=== PATIENT | male | born 1985 | race Caucasian/White ===

== ENCOUNTER 2019-03-01 09:10 | Inpatient (IN) ==
--- NOTE | 2019-03-01 09:37 | Emergency Department Note ---
Nausea/Vomiting/Diarrhea HPI - General Chief complaint: Nausea/Vomiting/Diarrhea Stated complaint: Vomiting, abd pain Time Seen by Provider: 03/01/19 09:25 Source: patient Mode of arrival: ambulatory Limitations: no limitations - History of Present Illness HPI Narrative: Patient has a history of insulin-dependent diabetes since age 10. 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 Has been on insulin ever since then. Only takes Lantus 25 units in the morning, also was high last night, bolused himself regular insulin several times. The last time he took insulin was 15 units of regular at 7:00 this morning. His blood sugar did come down to 300s to now 191. He does have mid epigastric abdominal pain and diffuse pain in the upper part of the abdomen. His symptoms started yesterday morning with an episode of vomiting after he had some coffee in the morning. He does remember taking his a.m. Lantus yesterday morning. Then he slept most of day yesterday, yesterday evening ate some chicken noodle soup and then promptly vomited up his dinner a little bit later. He is passing gas but very infrequently. Last bowel movement was 2 days ago. Feels nauseated at this point. Has been dry heaving much all evening and throughout the night. He get his sugar under control, he feels dehydrated. Denies chest pain denies shortness of breath no headache no sore throat, mouth feels dry. Denies any respiratory difficulty. He is still putting out urine, lasttime he voided was less than a few hours ago. MD complaint: nausea, vomiting, abdominal pain - Related Data Home Medications Medication Instructions Recorded Confirmed Cinacalcet HCl [Sensipar] 60 mg PO DAILY 12/15/17 02/20/18 Lisinopril [Zestril] 10 mg PO DAILY 12/15/17 02/20/18 Mycophenolate Sodium [Myfortic] 180 mg PO BID 12/15/17 02/20/18 Tacrolimus [Envarsus Xr] 4 mg PO BID 12/15/17 02/20/18 predniSONE [Prednisone] 5 mg PO DAILY 12/15/17 02/20/18 Allergies Allergy/AdvReac Type Severity Reaction Status Date / Time No Known Drug Allergies Allergy Verified 03/01/19 09:10 Review of Systems All systems ED: reviewed and negative except as stated. Constitutional: Denies: fever, chills ENT ED: Denies: throat pain Cardiovascular: Denies: palpitations Respiratory: Denies: shortness of breath Gastrointestinal: Reports: abdominal pain, nausea, vomiting. Denies: diarrhea Integumentary: Denies: rash Past Medical History - Past Medical History Source: nursing notes reviewed Medical history: Reports: DM, hypertension, renal disease, other (Kidney pancreas transplant 3 years ago) Surgical history ED: Reports: transplant, vascular surgery, other (status post kidney and pancreas transplant at [facility]. History of dialysis 8 years prior to that) - Social History smoking status: Never smoker Alcohol use: Reports: None Drug use: Reports: none Physical Exam Limitations: no limitations General appearance: alert, in no apparent distress Head: atraumatic, normocephalic, normal inspection Eye: Present: normal appearance, PERRL, EOMI, visual dawn intact. Absent: scleral icterus, conjunctival injection, periorbital swelling, periorbital tenderness ENT: Present: mucous membranes dry, TM's normal bilaterally, normal external ear exam. Absent: dental caries Neck: Present: normal inspection, full ROM, trachea midline. Absent: tenderness Chest: Present: normal inspection, symmetric chest wall rise. Absent: tenderness Respiratory: Present: normal lung sounds bilaterally. Absent: respiratory distress, rales/crackles, wheezes Cardiovascular: Present: regular rate, normal heart sounds, systolic murmur Abdominal: Present: soft, tenderness, hypoactive bowel sounds, scar, other (mass in the left lower quadrant. Which I believe is his kidney transplant.). Absent: distention, guarding, rebound Abdominal tenderness: Present: epigastrium, margaret umbilical, mild : Present: normal inspection. Absent: testicular tenderness Back: Present: normal inspection. Absent: CVA tenderness (R), CVA tenderness (L), vertebral tenderness Neurological: Present: alert, oriented X3, CN II-XII intact. Absent: motor sensory deficit Psychiatric: Present: normal affect Skin: Present: warm, dry, normal color. Absent: rash Course - Reevaluation(s) Reevaluation #1: Patient started on IV fluids, insulin given based on a sliding scale. We also started him on Lantus as he normally takes a baseline of 25 units of Lantus a day. Does tell me that he took his Lantus yesterday. His initial blood sugar was 190 but then started climbing up and we covered this twice with regular insulin. The fluids are given. He did have some more retching and dry heaves in the department which was treated with Zofran 2. His blood panel reviewed, x-ray reviewed. I do not think he has a bowel obstruction this point however the elevated lipase is concerning. CRP is not markedly elevated. His abdominal exam is relatively benign. I do not think he has a surgical abdomen, thus CT scan of the abdomen not ordered at this time. Given that his lipase is markedly elevated I do think he needs to stay in the hospital. Hospitalist contacted at this point. Reevaluation #2: CT of the abdomen and pelvis was done. Did show inflammation in the area of the pancreas and. I reached out to be a transplant team over in [place] and the transplant surgeon consumer educator was , and he was able to locate ultrasound results that had been done on this patient as well as location of the transplant which was in the right lower quadrant of the abdomen. Did not think that the transplant was causing the pancreatitis, typically with failure of the graft it then atrophies and he thought that his [place] pancreas was causing the pancreatitis at. He did not recommend transfer, rather recommended conservative care at our facility. I discussed this with Dr. WOOD and he will be admitting him to hospital Vital Signs Temperature 97.3 F 03/01/19 09:10 Pulse Rate 101 H 03/01/19 09:10 Respiratory Rate 16 03/01/19 09:10 Blood Pressure 149/99 03/01/19 09:10 Pulse Oximetry (%) 99 03/01/19 09:10 Temperature 97.3 F 03/01/19 09:10 Pulse Rate 90 03/01/19 15:50 Respiratory Rate 16 03/01/19 09:10 Blood Pressure 163/101 03/01/19 12:56 Pulse Oximetry (%) 97 03/01/19 15:50 Nausea/Vomiting/Diarrhea - MDM Narrative Medical decision making narrative: Impression is pancreatitis - Lab Data Lab results reviewed: Yes I reviewed the patient's lab results. Result diagrams: 03/01/19 10:00 03/01/19 10:00 Lab Results 03/01/19 03/01/19 03/01/19 Range/Units 10:00 10:00 10:00 WBC 10.8 (4.5-11.0) K/mcL RBC 4.85 (4.50-5.90) M/mcL Hgb 14.9 (13.5-16.5) g/dL Hct 45.0 (41.0-55.0) % MCV 92.7 (80.0-100.0) fL MCH 30.6 (26.0-34.0) pg MCHC 33.0 (31.0-36.0) g/dL RDW 13.0 (11.5-14.5) % Plt Count 238 (140-440) K/mcL MPV 7.8 (7.4-10.4) fL Gran % 84.2 H (38.0-78.0) % Lymph % (Auto) 6.7 L (15.5-49.0) % [place] % (Auto) 8.1 (1.0-12.0) % Eos % (Auto) 0.8 (0.0-7.0) % Baso % (Auto) 0.2 (0.0-2.0) % Gran # 9.1 H (1.8-8.0) K/mcL Lymph # (Auto) 0.7 L (1.5-4.8) K/mcL [place] # (Auto) 0.9 (0.1-0.9) K/mcL Eos # (Auto) 0.1 (0.0-0.7) K/mcL Baso # (Auto) 0 (0.0-0.3) K/mcL ABG Methemoglobin (0.4-1.5) % VBG pH (7.32-7.42) U VBG pCO2 (41.0-51.0) mmHg VBG pO2 (25-40) mmHg VBG HCO3 (24.0-28.0) mmol/L VBG Total CO2 (25.0-29.0) mmol/L VBG O2 Saturation (40.0-70.0) % VBG Base Excess (-2.0-2.0) VBG Lactic Acid 2.1 H (0.5-2.0) mmol/L Carboxyhemoglobin (0.0-1.5) % THgb Total Hemoglobin (13.5-16.5) gm/dL O2 Delivery Level Sodium 137 (133-145) mmol/L Potassium 3.9 (3.3-5.1) mmol/L Chloride 99 (96-108) mmol/L Carbon Dioxide 17 L (22-30) mmol/L Anion Gap 21.0 H (8-16) BUN 13 (6-20) mg/dl Creatinine 1.1 (0.7-1.2) mg/dl GFR Calculation 89 Glucose 202 H (70-105) mg/dL Osmolality (280-300) mOSM/kg Calcium 10.6 H (8.6-10.4) mg/dl Total Bilirubin 0.6 (0.0-1.0) mg/dL AST 25 (0-37) U/l ALT 36 (0-40) U/l Alkaline Phosphatase 167 H (39-117) U/L C-Reactive Protein 1.4 H (0.0-0.8) mg/dl Total Protein 7.3 (5.9-8.4) gm/dL Albumin 4.0 (3.2-5.2) gm/dL Globulin 3.3 (2.2-3.7) gm/dL Albumin/Globulin Ratio 1.2 (1.0-2.3) Amylase 307 H (28-100) U/L Lipase 945 H (7-60) U/L Urine Color Urine Appearance Urine pH (5.0-9.0) Ur Specific [place] (1.000-1.035) Urine Protein (NEG) mg/dL Urine Glucose (UA) (NEG) mg/dL Urine Ketones (NEG) mg/dL Urine Occult Blood (<0.03) mg/dL Urine Nitrate (NEG) Urine Bilirubin (NEG) mg/dL Urine Urobilinogen (NEG) mg/dL Ur Leukocyte Esterase (NEG) /uL Urine RBC (0-1) /hpf Urine WBC (0-4) /hpf Ur Squamous Epith Cells (0-4) /hpf Urine Bacteria (0) /hpf Hyaline Casts (0-2) /lpf Urine Mucus (0) /hpf Ur Culture Indicated? Urine Osmolality (80-1000) mOsm/kg 03/01/19 03/01/19 03/01/19 Range/Units 10:00 10:15 11:15 WBC (4.5-11.0) K/mcL RBC (4.50-5.90) M/mcL Hgb (13.5-16.5) g/dL Hct (41.0-55.0) % MCV (80.0-100.0) fL MCH (26.0-34.0) pg MCHC (31.0-36.0) g/dL RDW (11.5-14.5) % Plt Count (140-440) K/mcL MPV (7.4-10.4) fL Gran % (38.0-78.0) % Lymph % (Auto) (15.5-49.0) % [place] % (Auto) (1.0-12.0) % Eos % (Auto) (0.0-7.0) % Baso % (Auto) (0.0-2.0) % Gran # (1.8-8.0) K/mcL Lymph # (Auto) (1.5-4.8) K/mcL [place] # (Auto) (0.1-0.9) K/mcL Eos # (Auto) (0.0-0.7) K/mcL Baso # (Auto) (0.0-0.3) K/mcL ABG Methemoglobin 0.3 L (0.4-1.5) % VBG pH 7.27 L (7.32-7.42) U VBG pCO2 39.6 L (41.0-51.0) mmHg VBG pO2 82 H (25-40) mmHg VBG HCO3 17.9 L (24.0-28.0) mmol/L VBG Total CO2 19.1 L (25.0-29.0) mmol/L VBG O2 Saturation 91.6 H (40.0-70.0) % VBG Base Excess -8.4 L (-2.0-2.0) VBG Lactic Acid (0.5-2.0) mmol/L Carboxyhemoglobin 3.6 H (0.0-1.5) % THgb Total Hemoglobin 14.5 (13.5-16.5) gm/dL O2 Delivery Level Not Reportable Sodium (133-145) mmol/L Potassium (3.3-5.1) mmol/L Chloride (96-108) mmol/L Carbon Dioxide (22-30) mmol/L Anion Gap (8-16) BUN (6-20) mg/dl Creatinine (0.7-1.2) mg/dl GFR Calculation Glucose (70-105) mg/dL Osmolality 306 H (280-300) mOSM/kg Calcium (8.6-10.4) mg/dl Total Bilirubin (0.0-1.0) mg/dL AST (0-37) U/l ALT (0-40) U/l Alkaline Phosphatase (39-117) U/L C-Reactive Protein (0.0-0.8) mg/dl Total Protein (5.9-8.4) gm/dL Albumin (3.2-5.2) gm/dL Globulin (2.2-3.7) gm/dL Albumin/Globulin Ratio (1.0-2.3) Amylase (28-100) U/L Lipase (7-60) U/L Urine Color Urine Appearance Urine pH (5.0-9.0) Ur Specific [place] (1.000-1.035) Urine Protein (NEG) mg/dL Urine Glucose (UA) (NEG) mg/dL Urine Ketones (NEG) mg/dL Urine Occult Blood (<0.03) mg/dL Urine Nitrate (NEG) Urine Bilirubin (NEG) mg/dL Urine Urobilinogen (NEG) mg/dL Ur Leukocyte Esterase (NEG) /uL Urine RBC (0-1) /hpf Urine WBC (0-4) /hpf Ur Squamous Epith Cells (0-4) /hpf Urine Bacteria (0) /hpf Hyaline Casts (0-2) /lpf Urine Mucus (0) /hpf Ur Culture Indicated? Urine Osmolality 640 (80-1000) mOsm/kg 03/01/19 Range/Units 11:15 WBC (4.5-11.0) K/mcL RBC (4.50-5.90) M/mcL Hgb (13.5-16.5) g/dL Hct (41.0-55.0) % MCV (80.0-100.0) fL MCH (26.0-34.0) pg MCHC (31.0-36.0) g/dL RDW (11.5-14.5) % Plt Count (140-440) K/mcL MPV (7.4-10.4) fL Gran % (38.0-78.0) % Lymph % (Auto) (15.5-49.0) % [place] % (Auto) (1.0-12.0) % Eos % (Auto) (0.0-7.0) % Baso % (Auto) (0.0-2.0) % Gran # (1.8-8.0) K/mcL Lymph # (Auto) (1.5-4.8) K/mcL [place] # (Auto) (0.1-0.9) K/mcL Eos # (Auto) (0.0-0.7) K/mcL Baso # (Auto) (0.0-0.3) K/mcL ABG Methemoglobin (0.4-1.5) % VBG pH (7.32-7.42) U VBG pCO2 (41.0-51.0) mmHg VBG pO2 (25-40) mmHg VBG HCO3 (24.0-28.0) mmol/L VBG Total CO2 (25.0-29.0) mmol/L VBG O2 Saturation (40.0-70.0) % VBG Base Excess (-2.0-2.0) VBG Lactic Acid (0.5-2.0) mmol/L Carboxyhemoglobin (0.0-1.5) % THgb Total Hemoglobin (13.5-16.5) gm/dL O2 Delivery Level Sodium (133-145) mmol/L Potassium (3.3-5.1) mmol/L Chloride (96-108) mmol/L Carbon Dioxide (22-30) mmol/L Anion Gap (8-16) BUN (6-20) mg/dl Creatinine (0.7-1.2) mg/dl GFR Calculation Glucose (70-105) mg/dL Osmolality (280-300) mOSM/kg Calcium (8.6-10.4) mg/dl Total Bilirubin (0.0-1.0) mg/dL AST (0-37) U/l ALT (0-40) U/l Alkaline Phosphatase (39-117) U/L C-Reactive Protein (0.0-0.8) mg/dl Total Protein (5.9-8.4) gm/dL Albumin (3.2-5.2) gm/dL Globulin (2.2-3.7) gm/dL Albumin/Globulin Ratio (1.0-2.3) Amylase (28-100) U/L Lipase (7-60) U/L Urine Color Yellow Urine Appearance Clear Urine pH 6.0 (5.0-9.0) Ur Specific [place] 1.021 (1.000-1.035) Urine Protein 100 A (NEG) mg/dL Urine Glucose (UA) >=500 A (NEG) mg/dL Urine Ketones 80 A (NEG) mg/dL Urine Occult Blood 0.03 A (<0.03) mg/dL Urine Nitrate Neg (NEG) Urine Bilirubin Neg (NEG) mg/dL Urine Urobilinogen Neg (NEG) mg/dL Ur Leukocyte Esterase Neg (NEG) /uL Urine RBC 1 (0-1) /hpf Urine WBC 2 (0-4) /hpf Ur Squamous Epith Cells < 1 (0-4) /hpf Urine Bacteria 0 (0) /hpf Hyaline Casts 14 H (0-2) /lpf Urine Mucus Few (0) /hpf Ur Culture Indicated? No Urine Osmolality (80-1000) mOsm/kg Disposition Pt seen by [facility]/PA only: No Clinical Impression: Pancreatitis Disposition: Xfer As Inpt ([facility]) Condition: Good Referrals: Joe Harmon DO [Primary Care Provider] -
[2019-03-01] MEDS ORDERED: LACTATED RINGERS 1,000 ML IV ONE ×3 (09:49→12:50)
[2019-03-01] MEDS ORDERED: 0.9 % SODIUM CHLORIDE 1,000 ML IV ONE (09:52)
[2019-03-01] MEDS ORDERED: ONDANSETRON 4 MG/2 ML VIAL IV ONE ×2 (09:52→11:59)
[2019-03-01] MEDS ORDERED: INSULIN GLARGINE, HUMAN 1 UNIT/0.01 ML SQ ONE ×2 (09:55→10:11)
[2019-03-01] MEDS ORDERED: ESOMEPRAZOLE 40 MG VIAL IV SCH (10:00)
[2019-03-01 10:40] LABS: ABG Methemoglobin 0.3 % (0.4-1.5); Total Hemoglobin 14.5 gm/dL (13.5-16.5); VBG Base Excess -8.4 (-2.0-2.0); VBG HCO3 17.9 mmol/L (24.0-28.0); VBG Oxygen Saturation 91.6 % (40.0-70.0); VBG PCO2 39.6 mmHg (41.0-51.0); VBG PH 7.27 U (7.32-7.42); VBG PO2 82 mmHg (25-40); VBG Total CO2 19.1 mmol/L (25.0-29.0)
[2019-03-01 10:43] LABS: Basophils # (Auto) 0 K/mcL (0.0-0.3); Basophils % (Auto) 0.2 % (0.0-2.0); Eosinophils # (Auto) 0.1 K/mcL (0.0-0.7); Eosinophils % (Auto) 0.8 % (0.0-7.0); Granulocytes % (Auto) 84.2 % (38.0-78.0); Hemoglobin 14.9 g/dL (13.5-16.5); Lymphocytes # (Auto) 0.7 K/mcL (1.5-4.8); Lymphocytes % (Auto) 6.7 % (15.5-49.0); Mean Cell Volume 92.7 fL (80.0-100.0); Mean Platelet Volume 7.8 fL (7.4-10.4); Monocytes # (Auto) 0.9 K/mcL (0.1-0.9); Monocytes % (Auto) 8.1 % (1.0-12.0); Platelet Count 238 K/mcL (140-440); RBC 4.85 M/mcL (4.50-5.90); WBC 10.8 K/mcL (4.5-11.0)
[2019-03-01 11:15] LABS: ALT/SGPT 36 U/l (0-40); AST/SGOT 25 U/l (0-37); Albumin/Globulin Ratio 1.2 (1.0-2.3); Alkaline Phosphatase 167 U/L (39-117); Amylase 307 U/L (28-100); Bilirubin,Total 0.6 mg/dL (0.0-1.0); Blood Urea Nitrogen 13 mg/dl (6-20); C-Reactive Protein 1.4 mg/dl (0.0-0.8); Calcium 10.6 mg/dl (8.6-10.4); Carbon Dioxide 17 mmol/L (22-30); Chloride 99 mmol/L (96-108); Globulin 3.3 gm/dL (2.2-3.7); Glomerular Filtration Rate 89; Glucose 202 mg/dL (70-105)
[2019-03-01] MEDS ORDERED: INSULIN REGULAR, HUMAN 1 UNIT/0.01 ML UNIT SQ ONE ×2 (11:18→12:26)
[2019-03-01 12:01] LABS: Appearance,Urine CLEAR; Bacteria,Urine 0 /hpf (0); Bilirubin,Urine NEG (NEG); Color,Urine YELLOW; Culture Indicated,Urine NO; Glucose,Urine (UA) >=500 mg/dL (NEG); Ketones,Urine 80 mg/dL (NEG); Leukocyte Esterase,Urine NEG /uL (NEG); Mucus,Urine FEW /hpf (0); Nitrate,Urine NEG (NEG); Protein,Urine 100 mg/dL (NEG); Specific Gravity,Urine 1.021 (1.000-1.035); Urine Blood 0.03 mg/dL (<0.03); Urine Hyaline Cast 14 /lpf (0-2); Urine RBC 1 /hpf (0-1); Urine Squamous Epithelial Cell < 1 /hpf (0-4); Urine WBC 2 /hpf (0-4); Urobilinogen,Urine NEG (NEG)
[2019-03-01] MEDS ORDERED: HYDROmorphone 2 MG/ML VIAL IV PRN ×2 (12:25→18:41)
[2019-03-01] MEDS ORDERED: PROMETHAZINE 25 MG/ML VIAL IV ONE ×2 (12:25→15:28)
[2019-03-01] MEDS ORDERED: METOCLOPRAMIDE 10 MG/2 ML VIAL IV ONE (14:39)
--- NOTE | 2019-03-01 14:41 | XRay Report ---
HISTORY: Vomiting with abdominal pain FINDINGS: There is an air-fluid level within the stomach. The stomach is not abnormally distended. The large and small bowel pattern are normal without evidence of obstruction. No free intra-abdominal air is present. There are numerous surgical clips throughout the pelvis. Large amount of vascular calcification is seen in the lower pelvis. IMPRESSION: No acute abnormality Interpreted and Authenticated by: Cecilio Brock 03/01/19
[2019-03-01] MEDS ORDERED: diphenhydrAMINE 50 MG/ML VIAL IV ONE (15:27)
--- NOTE | 2019-03-01 16:35 | Cat Scan Report ---
History: Abdominal pain and pancreatitis. The patient had prior pancreas transplantation and kidney transplant. TECHNIQUE: The patient was imaged without intravenous contrast and only a small amount of oral contrast. Patient was too nauseated to drink much oral contrast. Radiation exposure was limited using dose reduction technology. FINDINGS: The liver is borderline enlarged. There is an elongated right lobe. This is remain stable since prior CT done at [facility] on 02/13/10. There is no evidence of a liver mass or cirrhosis. Spleen is normal in size and homogeneous. The gallbladder and bile ducts are normal. There are no gallstones. There are collapsed thickened mucosal folds in the stomach. There is generalized inflammation in the retroperitoneum, in and around the pancreas. The transplanted pancreas cannot be clearly seen separate from the [place] pancreas. There is no evidence of a pseudocyst or abscess in this region. Small intestine contains fluid and is nondistended. The waite do not appear to be thickened or inflamed.. There are multiple surgical sutures and other radiopaque material in right side of the pelvis in the general location of the cecum. The appearance of the right side of the colon has changed compared with the preoperative CT done in 2009. Did the patient have a segment of the cecum and ascending colon resected. Around the surgical sutures and clips there is a flexion of fluid was somewhat thickened waite. This is more likely distorted ascending colon rather than an abscess. There is no inflammation of the surrounding soft tissues. The [place] kidneys are severely atrophic and contain few calculi. There is no hydronephrosis. There is a well-positioned transplanted kidney in the left upper pelvis. There are numerous surgical clips around the hilar region where is anastomosed with the left iliac vessels. There is no hydronephrosis or calculus in the renal transplant. The urinary bladder is distended with a large amount of urine. The wall is normal thickness and there are no stones or other intraluminal filling defects. The patient has no ascites or adenopathy. IMPRESSION: Severe pancreatitis No abnormality seen in the transplanted kidney in the left side of the pelvis Postoperative changes in or around the cecum and ascending colon with thickened bowel wall in this region. This is a nonspecific finding Stable borderline hepatomegaly Interpreted and Authenticated by: Cecilio Brock 03/01/19
--- NOTE | 2019-03-01 17:45 | Internal Med History&Physical ---
Medical - H&P: [facility] Patient information: Note initiated : 03/01/19 at 5:41 pm Service Date, if different from initiated Date: [] Patient: Robert Pacheco a 33 y/o M admitted on for Vomiting, abd pain. Chief Complaint: [] History of present illness: Mr. Pacheco is a 33 year old M Who presents with nausea vomiting abdominal pain. He states he woke up Sunday morning feeling okay but then throughout the day became more tired and noticed his sugars started increasing. Last night they were between 300 and 400. Started having nausea vomiting yesterday evening as well as abdominal achy pain. Denies recent alcohol use states last use couple weeks ago. Denies drug use. Does not always adhere to diabetic diet. Had caffeinated coffee this morning and occasionally has sugary foods. He also missed several doses of his insulin. Denies diarrhea In the ED he was found to be in DKA as well as pancreatitis. 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 There was no concern for the transplanted pancreas as it has been failing and this is likely stemming from the [place] pancreas. No concern for transferring this patient. His renal function appears stable. was able to locate ultrasound results that had been done on this patient as well as location of the transplant which was in the right lower quadrant of the abdomen. Patient is feeling better after insulin and IV fluids in the ER. CTA abdomen done which showed severe pancreatitis. Patient given 3 L of IV fluid in the ED. Review of Systems: Pertinent positives as above. Denies headache/fever/chills/chest pain/cough/dyspnea/diarrhea. Many 10 point review of system reviewed negative Medical - H&P: PMH Medical history: Past medical history: Diabetes Hypertension Kidney transplant secondary to diabetes complication Chronic kidney disease follows Dr. Canchola Past surgical to: Kidney transplant Pancreas transplant that is failed Left upper extremity fistula Family history: Mother is healthy Father colon cancer Social history: Patient denies tobacco Drinks alcohol rarely Denies drug use Lives with family Medical - H&P: Meds Home Medications Medication Instructions Recorded Confirmed Type Cinacalcet HCl [Sensipar] 60 mg PO DAILY 12/15/17 02/20/18 History Lisinopril [Zestril] 10 mg PO DAILY 12/15/17 02/20/18 History Mycophenolate Sodium [Myfortic] 180 mg PO BID 12/15/17 02/20/18 History Tacrolimus [Envarsus Xr] 4 mg PO BID 12/15/17 02/20/18 History predniSONE [Prednisone] 5 mg PO DAILY 12/15/17 02/20/18 History Allergies Allergy/AdvReac Type Severity Reaction Status Date / Time No Known Drug Allergies Allergy Verified 03/01/19 09:10 Medical - H&P: Exam - Constitutional Vitals: Temp Pulse Resp BP Pulse Ox 97.3 F 90 16 163/101 97 03/01/19 09:10 03/01/19 15:50 03/01/19 09:10 03/01/19 12:56 03/01/19 15:50 Exam: General: Alert, Awake, No acute Distress Eyes/N/T: EOMI, PEERL, DMM Head/Neck: neck supple, normocephalic atraumatic CV: RRR, 2/6 SM Pulm: Clear b/l, no wheezing/rhonchi/rales Abd: soft, mild TTP epigastrum, +BS x4 Ext: no clubbing/cyanosis/edema Neuro: Alert, no focal deficits, moves all extremities, CN 2-12 grossly intact, symmetrical strength b/l upper/lower, sensations intact b/l upper/lower Skin: warm/dry Medical - H&P: Reslt - Labs CBC & Chem 7: 03/01/19 10:00 03/01/19 10:00 Labs: Short CBC 03/01/19 Range/Units 10:00 WBC 10.8 (4.5-11.0) K/mcL Hgb 14.9 (13.5-16.5) g/dL Hct 45.0 (41.0-55.0) % Plt Count 238 (140-440) K/mcL BMP 03/01/19 10:00 Sodium 137 Potassium 3.9 Chloride 99 Carbon Dioxide 17 L BUN 13 Creatinine 1.1 Glucose 202 H Calcium 10.6 H Liver Function 03/01/19 Range/Units 10:00 Total Bilirubin 0.6 (0.0-1.0) mg/dL AST 25 (0-37) U/l ALT 36 (0-40) U/l Alkaline Phosphatase 167 H (39-117) U/L Albumin 4.0 (3.2-5.2) gm/dL Urine 03/01/19 Range/Units 11:15 Urine Color Yellow Urine Appearance Clear Urine pH 6.0 (5.0-9.0) Ur Specific [place] 1.021 (1.000-1.035) Urine Protein 100 A (NEG) mg/dL Urine Glucose (UA) >=500 A (NEG) mg/dL - ABG Interpretation ABG results: 03/01/19 10:15 ABG Methemoglobin 0.3 L VBG pH 7.27 L VBG pCO2 39.6 L VBG pO2 82 H VBG HCO3 17.9 L VBG Total CO2 19.1 L VBG O2 Saturation 91.6 H VBG Base Excess -8.4 L Medical - H&P: A/P - Narrative A/P Narrative: A: *DKA: likely dietary and medication noncompliance -Failed pancreatic transplant past *Pancreatitis: *HTN: on lisinopril at home *CKD / Kidney transplant as complication from DM: -On mycophenolate/tacrolimus/prednisone -follows with Dr. Canchola * P: -insulin gtt -Monitor electrolytes -n.P.o. tonight -IVF's -GB u/s pending -pain control -Follow-up lipase in AM -IV prn BP meds while NPO - -ppx: Lovenox
[2019-03-01 18:22] LABS: Phosphorous 1.5 mg/dL (2.7-4.5)
[2019-03-01 18:23] LABS: Beta Hydroxybutyrate 3.13 mmol/L (< 0.27)
[2019-03-01] MEDS ORDERED: POLYETHYLENE GLYCOL 3350 17 GM PACKET PO PRN (18:41)
[2019-03-01] MEDS ORDERED: MAGNESIUM SULFATE 2 GM/50 ML BAG IV PRN (18:41)
[2019-03-01] MEDS ORDERED: INSULIN REGULAR, HUMAN 50 UNIT in 0.9 % SODIUM CHLORIDE 99.5 ML IV SCH (18:41)
[2019-03-01] MEDS ORDERED: ACETAMINOPHEN 325 MG TABLET PO PRN (18:41)
[2019-03-01] MEDS ORDERED: IPRATROPIUM/ALBUTEROL 3 ML AMPUL.NEB NEB PRN (18:41)
[2019-03-01] MEDS ORDERED: LACTULOSE 20 GM/30 ML ORAL.SOL PO PRN (18:41)
[2019-03-01] MEDS ORDERED: POTASSIUM CHLORIDE 40 MEQ in DEXTROSE 5% IN WATER 500 ML IV PRN (18:41)
[2019-03-01] MEDS ORDERED: METOCLOPRAMIDE 10 MG/2 ML VIAL IV PRN (18:41)
[2019-03-01] MEDS ORDERED: ONDANSETRON 4 MG/2 ML VIAL IV PRN (18:41)
[2019-03-01] MEDS ORDERED: 0.45 % SODIUM CHLORIDE 1,000 ML IV SCH (18:41)
[2019-03-01] MEDS ORDERED: POTASSIUM CHLORIDE 20 MEQ TABLET PO PRN ×2 (18:41)
[2019-03-01] MEDS ORDERED: LABETALOL 5 MG/ML ML IV PRN (18:41)
[2019-03-01] MEDS: DEXTROSE 5%-1/2NS 1,000 ML IV SCH (19:26)
[2019-03-01] MEDS ORDERED: POTASSIUM PHOSPHATE 40 MEQ in DEXTROSE 5% IN WATER 500 ML IV ONE (19:42)
[2019-03-01] MEDS ORDERED: MAGNESIUM SULFATE 2 GM/50 ML BAG IV ONE (19:42)
[2019-03-01 19:59] LABS: ABG Methemoglobin 0.3 % (0.4-1.5); VBG Base Excess -7.9 (-2.0-2.0); VBG HCO3 18.3 mmol/L (24.0-28.0); VBG Oxygen Saturation 76.4 % (40.0-70.0); VBG PCO2 40.3 mmHg (41.0-51.0); VBG PH 7.28 U (7.32-7.42); VBG PO2 46 mmHg (25-40); VBG Total CO2 19.6 mmol/L (25.0-29.0)
[2019-03-01] MEDS ORDERED: POTASSIUM PHOSPHATE 66 MEQ/15 ML VIAL IV ONE (20:24)
[2019-03-01] MEDS ORDERED: INSULIN REGULAR, HUMAN 1 UNIT/0.01 ML UNIT ONE ×2 (20:50→20:54)
[2019-03-01] MEDS ORDERED: SENNOSIDES 1 TABLET PO PRN (21:00)
[2019-03-01] MEDS: 0.9 % SODIUM CHLORIDE 250 ML IV SCH (21:30)
[2019-03-01] MEDS: DOCUSATE SODIUM 100 MG CAPSULE PO SCH (21:45)
[2019-03-01] MEDS: hydrALAZINE 20 MG/ML VIAL IV PRN (21:47)
[2019-03-01] MEDS: MYCOPHENOLATE SODIUM 180 MG PO SCH (22:09)
[2019-03-01] MEDS: TACROLIMUS 4 MG PO SCH (22:10)
[2019-03-01] MEDS: 0.9 % SODIUM CHLORIDE 10 ML SYRINGE IV SCH (22:30)
[2019-03-02] MEDS: hydrALAZINE 20 MG/ML VIAL IV PRN ×2 (03:18→08:13)
[2019-03-02 04:50] LABS: ABG Methemoglobin 0.3 % (0.4-1.5); Total Hemoglobin 12.5 gm/dL (13.5-16.5); VBG Base Excess -4.5 (-2.0-2.0); VBG HCO3 19.5 mmol/L (24.0-28.0); VBG PCO2 32.5 mmHg (41.0-51.0); VBG PO2 117 mmHg (25-40); VBG Total CO2 20.5 mmol/L (25.0-29.0)
[2019-03-02 05:03] LABS: Basophils # (Auto) 0 K/mcL (0.0-0.3); Basophils % (Auto) 0.2 % (0.0-2.0); Eosinophils # (Auto) 0.3 K/mcL (0.0-0.7); Eosinophils % (Auto) 3.6 % (0.0-7.0); Granulocytes % (Auto) 75.3 % (38.0-78.0); Hematocrit 38.3 % (41.0-55.0); Hemoglobin 12.9 g/dL (13.5-16.5); Lymphocytes # (Auto) 0.9 K/mcL (1.5-4.8); Lymphocytes % (Auto) 11.7 % (15.5-49.0); Mean Cell Volume 93.4 fL (80.0-100.0); Mean Corpuscular HGB Conc 33.6 g/dL (31.0-36.0); Mean Platelet Volume 7.1 fL (7.4-10.4); Monocytes # (Auto) 0.7 K/mcL (0.1-0.9); Monocytes % (Auto) 9.2 % (1.0-12.0); Platelet Count 145 K/mcL (140-440); WBC 7.6 K/mcL (4.5-11.0)
[2019-03-02 05:17] LABS: ALT/SGPT 24 U/l (0-40); AST/SGOT 15 U/l (0-37); Alkaline Phosphatase 137 U/L (39-117); Bilirubin,Direct < 0.2 mg/dL (0.0-0.3); Bilirubin,Total 0.5 mg/dL (0.0-1.0); Blood Urea Nitrogen 5 mg/dl (6-20); Calcium 9.4 mg/dl (8.6-10.4); Carbon Dioxide 18 mmol/L (22-30); Chloride 100 mmol/L (96-108); Globulin 2.9 gm/dL (2.2-3.7); Glomerular Filtration Rate 113; Glucose 229 mg/dL (70-105); Lactate Dehydrogenase 134 U/L (94-250); Phosphorous 1.8 mg/dL (2.7-4.5); Triglycerides 378 mg/dl (<150); Uric Acid 8.2 mg/dL (2.5-8.0)
[2019-03-02] MEDS: 0.9 % SODIUM CHLORIDE 10 ML SYRINGE IV SCH ×3 (05:51→19:59)
[2019-03-02] MEDS ORDERED: LACTATED RINGERS 1,000 ML IV ONE (06:04)
--- NOTE | 2019-03-02 07:11 | Internal Med Progress Note ---
Medical - PN: Subj Patient information: Note initiated : 03/02/19 at 7:09 am Service Date, if different from initiated Date: [] Patient: Robert Pacheco a 33 y/o M admitted on 03/01/19 for Vomiting, abd pain. Chief Complaint: [] Interval history: Mr. Pacheco is a 33 year old M Who presents with nausea vomiting abdominal pain. He states he woke up Sunday morning feeling okay but then throughout the day became more tired and noticed his sugars started increasing. Last night they were between 300 and 400. Started having nausea vomiting yesterday evening as well as abdominal achy pain. Denies recent alcohol use states last use couple weeks ago. Denies drug use. Does not always adhere to diabetic diet. Had caffeinated coffee this morning and occasionally has sugary foods. He also missed several doses of his insulin. Denies diarrhea In the ED he was found to be in DKA as well as pancreatitis. 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 There was no concern for the transplanted pancreas as it has been failing and this is likely stemming from the [place] pancreas. No concern for transferring this patient. His renal function appears stable. was able to locate ultrasound results that had been done on this patient as well as location of the transplant which was in the right lower quadrant of the abdomen. Patient is feeling better after insulin and IV fluids in the ER. CTA abdomen done which showed severe pancreatitis. Patient given 3 L of IV fluid in the ED. 10 Feeling much better today. No nausea vomiting this morning. Had a good bowel movement last night which helped with abdominal pain as well. Abdominal pain minimal this morning. Feels hungry. Despite lactate elevated this morning. Lactated Ringer bolus and follow-up lactate later this morning. May start clears this afternoon. Still has anion gap. Insulin drip running Gallbladder ultrasound pending Review of Systems: denies headache/fever/chills/nausea/vomiting/chest pain/cough/dyspnea/diarrhea. Otherwise see above. - Constitutional Vitals: Vital Signs Temp Pulse Resp BP Pulse Ox 98.0 F 88 18 152/95 99 03/02/19 04:01 03/02/19 06:00 03/02/19 06:00 03/02/19 06:00 03/02/19 06:00 Period Temp Pulse Resp BP Sys/Gonzalez Pulse Ox Last 24 Hr 97.3 F-98.4 F 78-105 15-24 102-176/76-114 92-100 Intake and Output 03/01/19 03/02/19 03/02/19 21:59 05:59 13:59 Intake Total 1000 872 Output Total 1150 Balance 1000 -278 Weight 55.792 kg Intake & Output: Intake & Output 03/01/19 03/02/19 03/02/19 21:59 05:59 13:59 Intake Total 1000 872 Output Total 1150 Balance 1000 -278 Weight 55.792 kg Intake: IV 1000 572 HumuLIN R 50 UNIT In Sodium 13 Chloride 0.9% 99.5 ml @ As Directed IV DUR VAL Rx#: [id number] Lactated Ringers 1,000 ml @ 1000 Wide Open IV BOLUS ONE Rx#: [id number] Potassium Phosphate 40 Meq In 509 Dextrose 5% in Water 500 ml @ 127.273 mls/hr IV ONCE ONE Rx#: [id number] Oral 300 Output: Void Amount 1150 Other: Urine Appearance Clear Urine Color Dark Nicci Urine Odor Normal Stool Size Large Stool Consistency Soft Formed # Bowel Movements 1 Exam: General: Alert, Awake, No acute Distress Eyes/N/T: EOMI, Head/Neck: neck supple, CV: RRR, 2/6 SM Pulm: Clear b/l, no wheezing/rhonchi/rales Abd: soft, minimal TTP epigastrum improved, +BS x4 Ext: no clubbing/cyanosis/edema Neuro: Alert, no focal deficits, moves all extremities, Skin: warm/dry Medical - PN: Obj Da - Labs CBC & Chem 7: 03/02/19 04:10 03/02/19 04:10 Labs: Abnormal Lab Results 03/02/19 03/02/19 03/02/19 04:10 04:10 04:10 RBC Hgb Hct MPV Gran % Lymph % (Auto) Gran # Lymph # (Auto) ABG Methemoglobin 0.3 L VBG pH VBG pCO2 32.5 L VBG pO2 117 H VBG HCO3 19.5 L VBG Total CO2 20.5 L VBG O2 Saturation 94.0 H VBG Base Excess -4.5 L VBG Lactic Acid 4.6 H* Carboxyhemoglobin 3.8 H Total Hemoglobin 12.5 L Carbon Dioxide Anion Gap BUN Glucose Osmolality Uric Acid Calcium Phosphorus Magnesium Alkaline Phosphatase C-Reactive Protein Albumin Triglycerides Amylase Lipase 961 H Beta-Hydroxybutyrate Urine Protein Urine Glucose (UA) Urine Ketones Urine Occult Blood Hyaline Casts 03/02/19 03/02/19 03/01/19 04:10 04:10 19:35 RBC 4.10 L Hgb 12.9 L Hct 38.3 L MPV 7.1 L Gran % Lymph % (Auto) 11.7 L Gran # Lymph # (Auto) 0.9 L ABG Methemoglobin VBG pH VBG pCO2 VBG pO2 VBG HCO3 VBG Total CO2 VBG O2 Saturation VBG Base Excess VBG Lactic Acid Carboxyhemoglobin Total Hemoglobin Carbon Dioxide 18 L Anion Gap 18.0 H BUN 5 L Glucose 229 H Osmolality Uric Acid 8.2 H Calcium Phosphorus 1.8 L Magnesium Alkaline Phosphatase 137 H C-Reactive Protein Albumin 3.0 L Triglycerides 378 H Amylase Lipase Beta-Hydroxybutyrate 4.21 H Urine Protein Urine Glucose (UA) Urine Ketones Urine Occult Blood Hyaline Casts 03/01/19 03/01/19 03/01/19 19:35 18:54 17:24 RBC Hgb Hct MPV Gran % Lymph % (Auto) Gran # Lymph # (Auto) ABG Methemoglobin 0.3 L VBG pH 7.28 L VBG pCO2 40.3 L VBG pO2 46 H VBG HCO3 18.3 L VBG Total CO2 19.6 L VBG O2 Saturation 76.4 H VBG Base Excess -7.9 L VBG Lactic Acid Carboxyhemoglobin 4.5 H Total Hemoglobin 13.0 L Carbon Dioxide Anion Gap BUN Glucose Osmolality Uric Acid Calcium Phosphorus 1.5 L Magnesium 1.5 L Alkaline Phosphatase C-Reactive Protein Albumin Triglycerides Amylase Lipase 1074 H Beta-Hydroxybutyrate Urine Protein Urine Glucose (UA) Urine Ketones Urine Occult Blood Hyaline Casts 03/01/19 03/01/19 03/01/19 17:24 11:15 10:15 RBC Hgb Hct MPV Gran % Lymph % (Auto) Gran # Lymph # (Auto) ABG Methemoglobin 0.3 L VBG pH 7.27 L VBG pCO2 39.6 L VBG pO2 82 H VBG HCO3 17.9 L VBG Total CO2 19.1 L VBG O2 Saturation 91.6 H VBG Base Excess -8.4 L VBG Lactic Acid Carboxyhemoglobin 3.6 H Total Hemoglobin Carbon Dioxide Anion Gap BUN Glucose Osmolality Uric Acid Calcium Phosphorus Magnesium Alkaline Phosphatase C-Reactive Protein Albumin Triglycerides 353 H Amylase Lipase Beta-Hydroxybutyrate 3.13 H Urine Protein 100 A Urine Glucose (UA) >=500 A Urine Ketones 80 A Urine Occult Blood 0.03 A Hyaline Casts 14 H 03/01/19 03/01/19 03/01/19 10:00 10:00 10:00 RBC Hgb Hct MPV Gran % Lymph % (Auto) Gran # Lymph # (Auto) ABG Methemoglobin VBG pH VBG pCO2 VBG pO2 VBG HCO3 VBG Total CO2 VBG O2 Saturation VBG Base Excess VBG Lactic Acid 2.1 H Carboxyhemoglobin Total Hemoglobin Carbon Dioxide 17 L Anion Gap 21.0 H BUN Glucose 202 H Osmolality 306 H Uric Acid Calcium 10.6 H Phosphorus Magnesium Alkaline Phosphatase 167 H C-Reactive Protein 1.4 H Albumin Triglycerides Amylase 307 H Lipase 945 H Beta-Hydroxybutyrate Urine Protein Urine Glucose (UA) Urine Ketones Urine Occult Blood Hyaline Casts 03/01/19 10:00 RBC Hgb Hct MPV Gran % 84.2 H Lymph % (Auto) 6.7 L Gran # 9.1 H Lymph # (Auto) 0.7 L ABG Methemoglobin VBG pH VBG pCO2 VBG pO2 VBG HCO3 VBG Total CO2 VBG O2 Saturation VBG Base Excess VBG Lactic Acid Carboxyhemoglobin Total Hemoglobin Carbon Dioxide Anion Gap BUN Glucose Osmolality Uric Acid Calcium Phosphorus Magnesium Alkaline Phosphatase C-Reactive Protein Albumin Triglycerides Amylase Lipase Beta-Hydroxybutyrate Urine Protein Urine Glucose (UA) Urine Ketones Urine Occult Blood Hyaline Casts Meds: Medications Acetaminophen (Tylenol) 650 mg PO Q6HP PRN PRN Reason: PAIN/FEVER > 101 Albuterol/Ipratropium (Duoneb) 3 ml NEB Q4HP PRN PRN Reason: Shortness Of Breath [facility] Test (Pha) (Accu-Chek) 1 each FS Q1 [facility] Last Admin: 03/02/19 05:58 Dose: 1 each Documented by: Docusate Sodium (Colace) 100 mg PO BID [facility] Last Admin: 03/01/19 21:45 Dose: Not Given Documented by: Enoxaparin Sodium (Lovenox) 40 mg SQ DAILY [facility] Hydralazine HCl (Apresoline) 0 mg IV Q2HP PRN PRN Reason: Hypertension Last Admin: 03/02/19 03:18 Dose: 10 mg Documented by: Hydromorphone HCl (Dilaudid) 0 mg IV Q2HP PRN PRN Reason: Pain Potassium Chloride 40 meq/ (Dextrose) 520 mls @ 130 mls/hr IV UD PRN PRN Reason: Potassium < 3 Magnesium Sulfate (Magnesium Sulfate) 2 gm in 50 mls @ 50 mls/hr IV UD PRN PRN Reason: Magnesium </= 1.6 Insulin Human Regular 50 unit/ (Sodium Chloride) 100 mls @ 0 mls/hr IV DUR [facility]; Protocol Last Titration: 03/02/19 05:00 Dose: 1.5 unit/h, 3 mls/hr Documented by: Dextrose/Sodium Chloride (Dextrose 5%-1/2ns Iv Solution) 1,000 mls @ 100 mls/hr IV .Q10H [facility] Last Admin: 03/01/19 19:26 Dose: 100 mls/hr Documented by: Sodium Chloride (Sodium Chloride 0.9%) 250 mls @ 20 mls/hr IV .[id number] [facility] Last Admin: 03/01/19 21:30 Dose: 20 mls/hr Documented by: Labetalol HCl (Trandate) 0 mg IV Q2HP PRN PRN Reason: Hypertension Last Admin: 03/02/19 04:04 Dose: 10 mg Documented by: Lactulose (Cephulac) 10 gm PO DAILYP PRN PRN Reason: Constipation Metoclopramide HCl (Reglan) 10 mg IV Q6HP PRN PRN Reason: Nausea And Vomiting Non-Formulary Medication (Tacrolimus [Envarsus Xr]) 4 mg PO BID [facility] Last Admin: 03/01/19 22:10 Dose: 3.5 mg Documented by: Ondansetron HCl (Zofran) 4 mg IV Q4HP PRN PRN Reason: Nausea And Vomiting (Mycophenolate Sodium [Myfortic] 180 Mg) 1 dose PO BID [facility] Last Admin: 03/01/19 22:09 Dose: 1 dose Documented by: Polyethylene Glycol (Miralax) 17 gm PO DAILYP PRN PRN Reason: Constipation Potassium Chloride (Kdur) 40 meq PO UD PRN PRN Reason: Potssium is 3-3.5 Potassium Chloride (Kdur) 40 meq PO UD PRN PRN Reason: Potassium < 3 Prednisone (Prednisone) 5 mg PO QAC [facility] Senna (Senokot) 2 tab PO HSP PRN PRN Reason: Constipation Sodium Chloride (Saline Flush) 10 ml IV Q8 [facility] Last Admin: 03/02/19 05:51 Dose: Not Given Documented by: - ABG Interpretation ABG results: 03/01/19 03/01/19 03/02/19 10:15 19:35 04:10 ABG Methemoglobin 0.3 L 0.3 L 0.3 L VBG pH 7.27 L 7.28 L 7.40 VBG pCO2 39.6 L 40.3 L 32.5 L VBG pO2 82 H 46 H 117 H VBG HCO3 17.9 L 18.3 L 19.5 L VBG Total CO2 19.1 L 19.6 L 20.5 L VBG O2 Saturation 91.6 H 76.4 H 94.0 H VBG Base Excess -8.4 L -7.9 L -4.5 L Medical - PN: A/P - Time Spent With Patient Total time spent is greater than 50% in coordination of care (as documented) at patient's floor/unit and/or counseling patient: - Narrative A/P Narrative: A: *DKA: likely dietary and medication noncompliance -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 Canchola * P: -insulin gtt until gap closed -Monitor electrolytes and replace prn -start clears as tolerated -IVF's, f/u lactate -GB u/s pending -pain control -Follow-up lipase in AM -IV prn BP meds while NPO then restart home lisinopril but increase -ppx: Lovenox Medical - PN: Qual - Stroke Symptom Onset Unknown: No - VTE Deep Vein Thrombosis/Pulmonary Embolism Present on Admission: No
[2019-03-02] MEDS ORDERED: POTASSIUM PHOSPHATE 40 MEQ in DEXTROSE 5% IN WATER 500 ML IV ONE (07:17)
[2019-03-02] MEDS: DEXTROSE 5%-1/2NS 1,000 ML IV SCH (08:05)
[2019-03-02] MEDS: predniSONE 5 MG TABLET PO SCH (08:13)
[2019-03-02] MEDS: CINACALCET 30 MG TABLET PO SCH (09:17)
[2019-03-02] MEDS: TACROLIMUS 1 MG CAPSULE PO SCH ×2 (09:20→20:32)
[2019-03-02] MEDS: DOCUSATE SODIUM 100 MG CAPSULE PO SCH ×2 (09:20→20:35)
[2019-03-02] MEDS: MYCOPHENOLATE SODIUM 180 MG PO SCH ×2 (09:24→20:32)
[2019-03-02] MEDS: TACROLIMUS 4 MG PO SCH (10:01)
[2019-03-02] MEDS: ENOXAPARIN 40 MG/0.4 ML SYRINGE SQ SCH (10:05)
[2019-03-02] MEDS: 0.9 % SODIUM CHLORIDE 250 ML IV SCH (10:09)
--- NOTE | 2019-03-02 10:28 | Discharge Summary ---
Medical - DS: Prov Patient information: Note initiated : 03/02/19 at 10:26 am Service Date, if different from initiated Date: [] Patient: Robert Pacheco 33 y/o M admitted on 03/01/19 for Vomiting, abd pain. Chief Complaint: [] Date of admission: 03/01/19 18:38 Primary care physician: Joe Harmon Consults: 03/01/19 Consult to Physician [CONS] Stat Comment: Consulting Provider: Wolfgang Vance Reason For Exam: Physician to Consult Medical - DS: Meds - Discharge Medications Active and Home Medications: Home Medications Cinacalcet HCl [Sensipar] 60 mg PO DAILY 12/15/17 [History Confirmed 03/01/19 Last Taken 03/01/19 08:30] Lisinopril [Zestril] 10 mg PO DAILY 12/15/17 [History Confirmed 03/01/19 Last Taken 03/01/19 08:30] Mycophenolate Sodium [Myfortic] 180 mg PO BID 12/15/17 [History Confirmed 03/02/19 Last Taken 03/01/19 08:30] predniSONE [Prednisone] 5 mg PO DAILY 12/15/17 [History Confirmed 03/01/19 Last Taken 03/01/19 08:30] Insulin Aspart [Novolog] 1 unit SQ ACHS 03/01/19 [History Confirmed 03/01/19 Last Taken 03/01/19 08:45] Insulin Glargine, Human [Lantus] 25 unit SQ QAM 03/01/19 [History Confirmed 03/01/19 Last Taken 02/28/19 09:00] Tacrolimus [Prograf] 0.5 mg PO HS 03/01/19 [History Confirmed 03/02/19 Last Taken 03/01/19 08:30] Tacrolimus [Prograf] 3 mg PO BID 03/01/19 [History Confirmed 03/02/19 Last Taken 03/01/19 08:30] Magnesium Oxide [Magnesium] 400 mg PO QAM 03/02/19 [History Confirmed 03/02/19 Last Taken 03/01/19 08:30] Vitamin D3 1,000 unit PO DAILY 03/02/19 [History Confirmed 03/02/19 Last Taken 03/01/19 08:30] Medical - DS: Hosp Hospital Course: Mr. Pacheco is a 33 year old M Who presents with nausea vomiting abdominal pain. He states he woke up Sunday morning feeling okay but then throughout the day became more tired and noticed his sugars started increasing. Last night they were between 300 and 400. Started having nausea vomiting yesterday evening as well as abdominal achy pain. Denies recent alcohol use states last use couple weeks ago. Denies drug use. Does not always adhere to diabetic diet. Had caffeinated coffee this morning and occasionally has sugary foods. He also missed several doses of his insulin. Denies diarrhea In the ED he was found to be in DKA as well as pancreatitis. 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 There was no concern for the transplanted pancreas as it has been failing and this is likely stemming from the [place] pancreas. No concern for transferring this patient. His renal function appears stable. was able to locate ultrasound results that had been done on this patient as well as location of the transplant which was in the right lower quadrant of the abdomen. Patient is feeling better after insulin and IV fluids in the ER. CTA abdomen done which showed severe pancreatitis. Patient given 3 L of IV fluid in the ED. 03/02 Feeling much better today. No nausea vomiting this morning. Had a good bowel movement last night which helped with abdominal pain as well. Abdominal pain minimal this morning. Feels hungry. Despite lactate elevated this morning. Lactated Ringer bolus and follow-up lactate later this morning. May start clears this afternoon. Still has anion gap. Insulin drip running Gallbladder ultrasound pending Discharge diagnosis: DKA pancreatitis lactic acidosis hypertension chronic kidney disease with k Secondary discharge diagnosis: Kidney transplant - Time Spent with Patient Total time spent providing and/or coordinating discharge services: Greater than 30 minutes Medical - DS: Exam - Constitutional Vitals: Vital Signs Temp Pulse Resp BP BP Pulse Ox 03/02/19 08:07 99.0 F 19 162/100 100 03/02/19 08:00 18 100 03/02/19 06:00 88 18 152/95 99 03/02/19 05:01 88 22 163/94 97 03/02/19 04:24 94 H 20 154/103 97 03/02/19 04:01 98.0 F 93 H 18 161/104 97 03/02/19 03:38 94 H 24 H 159/100 97 03/02/19 03:05 18 03/02/19 03:01 20 156/103 98 03/02/19 02:01 19 143/93 03/02/19 01:01 96 H 19 143/93 97 03/02/19 00:01 98.4 F 88 16 144/90 98 03/01/19 23:01 81 16 153/91 100 03/01/19 22:02 85 19 151/100 100 03/01/19 21:01 83 17 157/97 100 03/01/19 20:01 79 15 158/94 100 03/01/19 19:16 105 H 102/82 99 03/01/19 19:02 87 113/76 92 03/01/19 19:01 83 21 153/100 100 03/01/19 18:39 81 100 03/01/19 18:38 97.8 F 16 149/114 100 03/01/19 18:32 93 H 147/91 100 03/01/19 18:25 79 98 03/01/19 18:22 80 147/99 97 03/01/19 15:50 90 97 03/01/19 15:32 78 99 03/01/19 14:02 97 03/01/19 13:37 81 100 03/01/19 13:12 86 99 03/01/19 12:56 88 163/101 98 03/01/19 12:45 163/101 03/01/19 12:30 176/101 03/01/19 12:15 172/104 03/01/19 12:00 173/91 100 03/01/19 11:45 86 100 03/01/19 11:30 86 99 Intake and Output 03/01/19 03/02/19 03/02/19 21:59 05:59 13:59 Intake Total 7561 358 2750 Output Total 1150 Balance 1000 -278 2250 Intake: IV 3505 953 9485 Sodium Chloride 0.9% 250 ml @ 250 20 mls/hr IV .[id number] VAL Rx#: [id number] Dextrose 5%-1/2Ns IV Solution 1 1000 ,000 ml @ 100 mls/hr IV .Q10H VAL Rx#:[id number] HumuLIN R 50 UNIT In Sodium 13 Chloride 0.9% 99.5 ml @ As Directed IV DUR VAL Rx#: [id number] Lactated Ringers 1,000 ml @ 1000 1000 Wide Open IV BOLUS ONE Rx#: [id number] Potassium Phosphate 40 Meq In 509 Dextrose 5% in Water 500 ml @ 127.273 mls/hr IV ONCE ONE Rx#: [id number] Oral 300 Output: Void Amount 1150 Other: Urine Appearance Clear Urine Color Dark Nicci Urine Odor Normal Stool Size Large Stool Consistency Soft Formed # Bowel Movements 1 Weight 55.792 kg Medical - DS: Data Labs on day of discharge: Labs from last 24 hours 03/02/19 03/02/19 03/02/19 04:10 04:10 04:10 WBC RBC Hgb Hct MCV MCH MCHC RDW Plt Count MPV Gran % Lymph % (Auto) [place] % (Auto) Eos % (Auto) Baso % (Auto) Gran # Lymph # (Auto) [place] # (Auto) Eos # (Auto) Baso # (Auto) ABG Methemoglobin 0.3 L VBG pH 7.40 VBG pCO2 32.5 L VBG pO2 117 H VBG HCO3 19.5 L VBG Total CO2 20.5 L VBG O2 Saturation 94.0 H VBG Base Excess -4.5 L VBG Lactic Acid 4.6 H* Carboxyhemoglobin 3.8 H Total Hemoglobin 12.5 L O2 Delivery Level Not Reportable Sodium Potassium Chloride Carbon Dioxide Anion Gap BUN Creatinine GFR Calculation Glucose Osmolality Uric Acid Calcium Phosphorus Magnesium Total Bilirubin Direct Bilirubin GGT AST ALT Alkaline Phosphatase Lactate Dehydrogenase C-Reactive Protein Total Protein Albumin Globulin Albumin/Globulin Ratio Triglycerides Amylase Lipase 961 H Beta-Hydroxybutyrate Urine Color Urine Appearance Urine pH Ur Specific [place] Urine Protein Urine Glucose (UA) Urine Ketones Urine Occult Blood Urine Nitrate Urine Bilirubin Urine Urobilinogen Ur Leukocyte Esterase Urine RBC Urine WBC Ur Squamous Epith Cells Urine Bacteria Hyaline Casts Urine Mucus Ur Culture Indicated? Urine Osmolality 03/02/19 03/02/19 03/01/19 04:10 04:10 19:35 WBC 7.6 RBC 4.10 L Hgb 12.9 L Hct 38.3 L MCV 93.4 MCH 31.4 MCHC 33.6 RDW 13.0 Plt Count 145 MPV 7.1 L Gran % 75.3 Lymph % (Auto) 11.7 L [place] % (Auto) 9.2 Eos % (Auto) 3.6 Baso % (Auto) 0.2 Gran # 5.7 Lymph # (Auto) 0.9 L [place] # (Auto) 0.7 Eos # (Auto) 0.3 Baso # (Auto) 0 ABG Methemoglobin VBG pH VBG pCO2 VBG pO2 VBG HCO3 VBG Total CO2 VBG O2 Saturation VBG Base Excess VBG Lactic Acid Carboxyhemoglobin Total Hemoglobin O2 Delivery Level Sodium 136 Potassium 3.4 Chloride 100 Carbon Dioxide 18 L Anion Gap 18.0 H BUN 5 L Creatinine 0.9 GFR Calculation 113 Glucose 229 H Osmolality Uric Acid 8.2 H Calcium 9.4 Phosphorus 1.8 L Magnesium 1.7 Total Bilirubin 0.5 Direct Bilirubin < 0.2 GGT 43 AST 15 ALT 24 Alkaline Phosphatase 137 H Lactate Dehydrogenase 134 C-Reactive Protein Total Protein 5.9 Albumin 3.0 L Globulin 2.9 Albumin/Globulin Ratio 1.0 Triglycerides 378 H Amylase Lipase Beta-Hydroxybutyrate 4.21 H Urine Color Urine Appearance Urine pH Ur Specific [place] Urine Protein Urine Glucose (UA) Urine Ketones Urine Occult Blood Urine Nitrate Urine Bilirubin Urine Urobilinogen Ur Leukocyte Esterase Urine RBC Urine WBC Ur Squamous Epith Cells Urine Bacteria Hyaline Casts Urine Mucus Ur Culture Indicated? Urine Osmolality 03/01/19 03/01/19 03/01/19 19:35 18:54 17:24 WBC RBC Hgb Hct MCV MCH MCHC RDW Plt Count MPV Gran % Lymph % (Auto) [place] % (Auto) Eos % (Auto) Baso % (Auto) Gran # Lymph # (Auto) [place] # (Auto) Eos # (Auto) Baso # (Auto) ABG Methemoglobin 0.3 L VBG pH 7.28 L VBG pCO2 40.3 L VBG pO2 46 H VBG HCO3 18.3 L VBG Total CO2 19.6 L VBG O2 Saturation 76.4 H VBG Base Excess -7.9 L VBG Lactic Acid Carboxyhemoglobin 4.5 H Total Hemoglobin 13.0 L O2 Delivery Level Not Reportable Sodium Potassium Chloride Carbon Dioxide Anion Gap BUN Creatinine GFR Calculation Glucose Osmolality Uric Acid Calcium Phosphorus 1.5 L Magnesium 1.5 L Total Bilirubin Direct Bilirubin GGT AST ALT Alkaline Phosphatase Lactate Dehydrogenase C-Reactive Protein Total Protein Albumin Globulin Albumin/Globulin Ratio Triglycerides Amylase Lipase 1074 H Beta-Hydroxybutyrate Urine Color Urine Appearance Urine pH Ur Specific [place] Urine Protein Urine Glucose (UA) Urine Ketones Urine Occult Blood Urine Nitrate Urine Bilirubin Urine Urobilinogen Ur Leukocyte Esterase Urine RBC Urine WBC Ur Squamous Epith Cells Urine Bacteria Hyaline Casts Urine Mucus Ur Culture Indicated? Urine Osmolality 03/01/19 03/01/19 03/01/19 17:24 11:15 11:15 WBC RBC Hgb Hct MCV MCH MCHC RDW Plt Count MPV Gran % Lymph % (Auto) [place] % (Auto) Eos % (Auto) Baso % (Auto) Gran # Lymph # (Auto) [place] # (Auto) Eos # (Auto) Baso # (Auto) ABG Methemoglobin VBG pH VBG pCO2 VBG pO2 VBG HCO3 VBG Total CO2 VBG O2 Saturation VBG Base Excess VBG Lactic Acid Carboxyhemoglobin Total Hemoglobin O2 Delivery Level Sodium Potassium Chloride Carbon Dioxide Anion Gap BUN Creatinine GFR Calculation Glucose Osmolality Uric Acid Calcium Phosphorus Magnesium Total Bilirubin Direct Bilirubin GGT AST ALT Alkaline Phosphatase Lactate Dehydrogenase C-Reactive Protein Total Protein Albumin Globulin Albumin/Globulin Ratio Triglycerides 353 H Amylase Lipase Beta-Hydroxybutyrate 3.13 H Urine Color Yellow Urine Appearance Clear Urine pH 6.0 Ur Specific [place] 1.021 Urine Protein 100 A Urine Glucose (UA) >=500 A Urine Ketones 80 A Urine Occult Blood 0.03 A Urine Nitrate Neg Urine Bilirubin Neg Urine Urobilinogen Neg Ur Leukocyte Esterase Neg Urine RBC 1 Urine WBC 2 Ur Squamous Epith Cells < 1 Urine Bacteria 0 Hyaline Casts 14 H Urine Mucus Few Ur Culture Indicated? No Urine Osmolality 640 03/01/19 03/01/19 03/01/19 10:15 10:00 10:00 WBC RBC Hgb Hct MCV MCH MCHC RDW Plt Count MPV Gran % Lymph % (Auto) [place] % (Auto) Eos % (Auto) Baso % (Auto) Gran # Lymph # (Auto) [place] # (Auto) Eos # (Auto) Baso # (Auto) ABG Methemoglobin 0.3 L VBG pH 7.27 L VBG pCO2 39.6 L VBG pO2 82 H VBG HCO3 17.9 L VBG Total CO2 19.1 L VBG O2 Saturation 91.6 H VBG Base Excess -8.4 L VBG Lactic Acid 2.1 H Carboxyhemoglobin 3.6 H Total Hemoglobin 14.5 O2 Delivery Level Sodium Potassium Chloride Carbon Dioxide Anion Gap BUN Creatinine GFR Calculation Glucose Osmolality 306 H Uric Acid Calcium Phosphorus Magnesium Total Bilirubin Direct Bilirubin GGT AST ALT Alkaline Phosphatase Lactate Dehydrogenase C-Reactive Protein Total Protein Albumin Globulin Albumin/Globulin Ratio Triglycerides Amylase Lipase Beta-Hydroxybutyrate Urine Color Urine Appearance Urine pH Ur Specific [place] Urine Protein Urine Glucose (UA) Urine Ketones Urine Occult Blood Urine Nitrate Urine Bilirubin Urine Urobilinogen Ur Leukocyte Esterase Urine RBC Urine WBC Ur Squamous Epith Cells Urine Bacteria Hyaline Casts Urine Mucus Ur Culture Indicated? Urine Osmolality 03/01/19 03/01/19 10:00 10:00 WBC 10.8 RBC 4.85 Hgb 14.9 Hct 45.0 MCV 92.7 MCH 30.6 MCHC 33.0 RDW 13.0 Plt Count 238 MPV 7.8 Gran % 84.2 H Lymph % (Auto) 6.7 L [place] % (Auto) 8.1 Eos % (Auto) 0.8 Baso % (Auto) 0.2 Gran # 9.1 H Lymph # (Auto) 0.7 L [place] # (Auto) 0.9 Eos # (Auto) 0.1 Baso # (Auto) 0 ABG Methemoglobin VBG pH VBG pCO2 VBG pO2 VBG HCO3 VBG Total CO2 VBG O2 Saturation VBG Base Excess VBG Lactic Acid Carboxyhemoglobin Total Hemoglobin O2 Delivery Level Sodium 137 Potassium 3.9 Chloride 99 Carbon Dioxide 17 L Anion Gap 21.0 H BUN 13 Creatinine 1.1 GFR Calculation 89 Glucose 202 H Osmolality Uric Acid Calcium 10.6 H Phosphorus Magnesium Total Bilirubin 0.6 Direct Bilirubin GGT AST 25 ALT 36 Alkaline Phosphatase 167 H Lactate Dehydrogenase C-Reactive Protein 1.4 H Total Protein 7.3 Albumin 4.0 Globulin 3.3 Albumin/Globulin Ratio 1.2 Triglycerides Amylase 307 H Lipase 945 H Beta-Hydroxybutyrate Urine Color Urine Appearance Urine pH Ur Specific [place] Urine Protein Urine Glucose (UA) Urine Ketones Urine Occult Blood Urine Nitrate Urine Bilirubin Urine Urobilinogen Ur Leukocyte Esterase Urine RBC Urine WBC Ur Squamous Epith Cells Urine Bacteria Hyaline Casts Urine Mucus Ur Culture Indicated? Urine Osmolality Medical - DS: A/P - Patient/Caregiver Discharge Instructions Activity: increase activity as tolerated Diet: Low Fat, Consistent Carbohydrate - Follow up Plan Follow up with: Joe Harmon DO [Primary Care Provider] - Disposition: Home, Self-Care Prognosis: Fair Rehab Potential: Fair Overall status at discharge: patient is back to baseline Medical - DS: Qual - VTE Deep Vein Thrombosis/Pulmonary Embolism Present on Admission: No
[2019-03-02] MEDS ORDERED: ACETAMINOPHEN 325 MG TABLET PO PRN (11:54)
[2019-03-02 12:37] LABS: Beta Hydroxybutyrate 0.33 mmol/L (< 0.27); Blood Urea Nitrogen 3 mg/dl (6-20); Calcium 9.7 mg/dl (8.6-10.4); Carbon Dioxide 22 mmol/L (22-30); Chloride 99 mmol/L (96-108); Glomerular Filtration Rate 113; Glucose 207 mg/dL (70-105); HDL Cholesterol 24 mg/dl (>40); LDL Cholesterol,Calculated 16 mg/dl (SEE CHART); Non-HDL Cholesterol 89 (LDL TARGET+30); Triglycerides 367 mg/dl (<150)
[2019-03-02] MEDS ORDERED: INSULIN GLARGINE, HUMAN 1 UNIT/0.01 ML SQ SCH (13:03)
[2019-03-02] MEDS ORDERED: DEXTROSE 31 GM ORAL.SUSP PO PRN (13:09)
[2019-03-02] MEDS ORDERED: DEXTROSE 50% 50 ML VIAL IV PRN (13:09)
--- NOTE | 2019-03-02 14:35 | Ultrasound Report ---
History: Pancreatitis, abdominal pain nausea and vomiting. Patient had prior pancreas and kidney transplantation FINDINGS: The right lobe of the liver is elongated. The liver parenchyma is homogeneous, without evidence of mass or infiltration. Doppler shows normal blood flow in the hepatic and portal veins. The gallbladder is normal with no stones or thickening of the wall. The common bile duct measures 3.9 mm. The right kidney is severely atrophic. The visualized portion of the pancreas appears bulky and edematous. There is edema is in the salas hepatis. No abscess or pseudocyst are present. There is a trace amount of free fluid in the salas hepatis. IMPRESSION: Pancreatitis Interpreted and Authenticated by: Cecilio Brock 03/02/19
[2019-03-02] MEDS: INSULIN LISPRO 1 UNIT/0.01 ML UNIT SQ SCH ×2 (17:05→20:30)
[2019-03-02] MEDS ORDERED: TACROLIMUS 0.5 MG CAPSULE PO SCH (21:00)
[2019-03-03] MEDS ORDERED: DEXTROSE 5%-NS 1,000 ML IV SCH (02:00)
[2019-03-03] MEDS: 0.9 % SODIUM CHLORIDE 10 ML SYRINGE IV SCH ×3 (05:21→21:23)
--- NOTE | 2019-03-03 07:09 | Internal Med Progress Note ---
Medical - PN: Subj Patient information: Note initiated : 03/03/19 at 7:06 am Service Date, if different from initiated Date: [] Patient: Robert Pacheco a 34 y/o M admitted on 03/01/19 for Vomiting, abd pain. Chief Complaint: [] Interval history: Mr. Pacheco is a 33 year old M Who presents with nausea vomiting abdominal pain. He states he woke up Sunday morning feeling okay but then throughout the day became more tired and noticed his sugars started increasing. Last night they were between 300 and 400. Started having nausea vomiting yesterday evening as well as abdominal achy pain. Denies recent alcohol use states last use couple weeks ago. Denies drug use. Does not always adhere to diabetic diet. Had caffeinated coffee this morning and occasionally has sugary foods. He also missed several doses of his insulin. Denies diarrhea In the ED he was found to be in DKA as well as pancreatitis. 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 There was no concern for the transplanted pancreas as it has been failing and this is likely stemming from the [place] pancreas. No concern for transferring this patient. His renal function appears stable. was able to locate ultrasound results that had been done on this patient as well as location of the transplant which was in the right lower quadrant of the abdomen. Patient is feeling better after insulin and IV fluids in the ER. CTA abdomen done which showed severe pancreatitis. Patient given 3 L of IV fluid in the ED. 03/02 Feeling much better today. No nausea vomiting this morning. Had a good bowel movement last night which helped with abdominal pain as well. Abdominal pain minimal this morning. Feels hungry. Despite lactate elevated this morning. Lactated Ringer bolus and follow-up lactate later this morning. May start clears this afternoon. Still has anion gap. Insulin drip running Gallbladder ultrasound pending 03/03 Well. Continues to feel better no nausea vomiting or abdominal pain. Tolerating liquid diet well. Replacing low electrolytes. Patient is concerned about his fistula says it appears to have a little bit of bruising and his arm is little more swollen. Nurse contacted it telecom technician review and then will discuss with Dr. Canchola for imaging. Review of Systems: denies headache/fever/chills/nausea/vomiting/chest pain/cough/dyspnea/diarrhea. Otherwise see above. - Constitutional Vitals: Vital Signs Temp Pulse Resp BP Pulse Ox 97.8 F 88 22 123/85 94 03/03/19 04:01 03/02/19 06:00 03/03/19 06:01 03/03/19 06:01 03/03/19 06:01 Period Temp Pulse Resp BP Sys/Gonzalez Pulse Ox Last 24 Hr 97.4 F-99.0 F 16-24 123-172/83-114 94-100 Intake and Output 03/02/19 03/03/19 03/03/19 21:59 05:59 13:59 Intake Total 2237.0909 617 Output Total 950 1475 Balance 1287.0909 -858 Weight 57.017 kg Intake & Output: Intake & Output 03/02/19 03/03/19 03/03/19 21:59 05:59 13:59 Intake Total 2237.0909 617 Output Total 950 1475 Balance 1287.0909 -858 Weight 57.017 kg Intake: IV 1237.0909 137 Sodium Chloride 0.9% 250 ml @ 86 20 mls/hr IV .[id number] [facility] Rx#: [id number] Dextrose 5%-1/2Ns IV Solution 1 635 ,000 ml @ 100 mls/hr IV .Q10H [facility] Rx#:[id number] Dextrose 5%-Ns IV Solution 1, 137 000 ml @ 25 mls/hr IV .Q24H [facility] Rx#:[id number] HumuLIN R 50 UNIT In Sodium 7 Chloride 0.9% 99.5 ml @ As Directed IV DUR VAL Rx#: [id number] Potassium Phosphate 40 Meq In 509.0909 Dextrose 5% in Water 500 ml @ 127.273 mls/hr IV ONCE ONE Rx#: [id number] Oral 1000 480 Output: Urine Catheter Amount 950 Void Amount 575 Urine/Stool Mix 900 Other: Meal Dinner Percent of Meal Consumed 100% Feeding Ability Independent Nourishment/Supplement name Juice Urine Appearance Clear Urine Color Bright Yellow Urine Odor Normal Stool Size Small Stool Consistency Soft Loose # Voids 1 # Bowel Movements 1 Exam: General: Alert, Awake, No acute Distress Eyes/N/T: EOMI, Head/Neck: neck supple, CV: RRR, 2/6 SM Pulm: Clear b/l, no wheezing/rhonchi/rales Abd: soft, nontender, +BS x4 Ext: no clubbing/cyanosis/edema Neuro: Alert, no focal deficits, moves all extremities, Skin: warm/dry Medical - PN: Obj Da - Labs CBC & Chem 7: 03/02/19 04:10 03/03/19 04:20 Labs: Abnormal Lab Results 03/02/19 03/02/19 03/02/19 11:30 11:30 11:30 RBC Hgb Hct MPV Gran % Lymph % (Auto) Gran # Lymph # (Auto) ABG Methemoglobin VBG pH VBG pCO2 VBG pO2 VBG HCO3 VBG Total CO2 VBG O2 Saturation VBG Base Excess VBG Lactic Acid 3.9 H Carboxyhemoglobin Total Hemoglobin Carbon Dioxide Anion Gap BUN 3 L Glucose 207 H Osmolality Uric Acid Calcium Phosphorus Magnesium Alkaline Phosphatase C-Reactive Protein Albumin Triglycerides 367 H HDL Cholesterol 24 L Amylase Lipase Beta-Hydroxybutyrate 0.33 H Urine Protein Urine Glucose (UA) Urine Ketones Urine Occult Blood Hyaline Casts 03/02/19 03/02/19 03/02/19 04:10 04:10 04:10 RBC Hgb Hct MPV Gran % Lymph % (Auto) Gran # Lymph # (Auto) ABG Methemoglobin 0.3 L VBG pH VBG pCO2 32.5 L VBG pO2 117 H VBG HCO3 19.5 L VBG Total CO2 20.5 L VBG O2 Saturation 94.0 H VBG Base Excess -4.5 L VBG Lactic Acid 4.6 H* Carboxyhemoglobin 3.8 H Total Hemoglobin 12.5 L Carbon Dioxide Anion Gap BUN Glucose Osmolality Uric Acid Calcium Phosphorus Magnesium Alkaline Phosphatase C-Reactive Protein Albumin Triglycerides HDL Cholesterol Amylase Lipase 961 H Beta-Hydroxybutyrate Urine Protein Urine Glucose (UA) Urine Ketones Urine Occult Blood Hyaline Casts 03/02/19 03/02/19 03/01/19 04:10 04:10 19:35 RBC 4.10 L Hgb 12.9 L Hct 38.3 L MPV 7.1 L Gran % Lymph % (Auto) 11.7 L Gran # Lymph # (Auto) 0.9 L ABG Methemoglobin VBG pH VBG pCO2 VBG pO2 VBG HCO3 VBG Total CO2 VBG O2 Saturation VBG Base Excess VBG Lactic Acid Carboxyhemoglobin Total Hemoglobin Carbon Dioxide 18 L Anion Gap 18.0 H BUN 5 L Glucose 229 H Osmolality Uric Acid 8.2 H Calcium Phosphorus 1.8 L Magnesium Alkaline Phosphatase 137 H C-Reactive Protein Albumin 3.0 L Triglycerides 378 H HDL Cholesterol Amylase Lipase Beta-Hydroxybutyrate 4.21 H Urine Protein Urine Glucose (UA) Urine Ketones Urine Occult Blood Hyaline Casts 03/01/19 03/01/19 03/01/19 19:35 18:54 17:24 RBC Hgb Hct MPV Gran % Lymph % (Auto) Gran # Lymph # (Auto) ABG Methemoglobin 0.3 L VBG pH 7.28 L VBG pCO2 40.3 L VBG pO2 46 H VBG HCO3 18.3 L VBG Total CO2 19.6 L VBG O2 Saturation 76.4 H VBG Base Excess -7.9 L VBG Lactic Acid Carboxyhemoglobin 4.5 H Total Hemoglobin 13.0 L Carbon Dioxide Anion Gap BUN Glucose Osmolality Uric Acid Calcium Phosphorus 1.5 L Magnesium 1.5 L Alkaline Phosphatase C-Reactive Protein Albumin Triglycerides HDL Cholesterol Amylase Lipase 1074 H Beta-Hydroxybutyrate Urine Protein Urine Glucose (UA) Urine Ketones Urine Occult Blood Hyaline Casts 03/01/19 03/01/19 03/01/19 17:24 11:15 10:15 RBC Hgb Hct MPV Gran % Lymph % (Auto) Gran # Lymph # (Auto) ABG Methemoglobin 0.3 L VBG pH 7.27 L VBG pCO2 39.6 L VBG pO2 82 H VBG HCO3 17.9 L VBG Total CO2 19.1 L VBG O2 Saturation 91.6 H VBG Base Excess -8.4 L VBG Lactic Acid Carboxyhemoglobin 3.6 H Total Hemoglobin Carbon Dioxide Anion Gap BUN Glucose Osmolality Uric Acid Calcium Phosphorus Magnesium Alkaline Phosphatase C-Reactive Protein Albumin Triglycerides 353 H HDL Cholesterol Amylase Lipase Beta-Hydroxybutyrate 3.13 H Urine Protein 100 A Urine Glucose (UA) >=500 A Urine Ketones 80 A Urine Occult Blood 0.03 A Hyaline Casts 14 H 03/01/19 03/01/19 03/01/19 10:00 10:00 10:00 RBC Hgb Hct MPV Gran % Lymph % (Auto) Gran # Lymph # (Auto) ABG Methemoglobin VBG pH VBG pCO2 VBG pO2 VBG HCO3 VBG Total CO2 VBG O2 Saturation VBG Base Excess VBG Lactic Acid 2.1 H Carboxyhemoglobin Total Hemoglobin Carbon Dioxide 17 L Anion Gap 21.0 H BUN Glucose 202 H Osmolality 306 H Uric Acid Calcium 10.6 H Phosphorus Magnesium Alkaline Phosphatase 167 H C-Reactive Protein 1.4 H Albumin Triglycerides HDL Cholesterol Amylase 307 H Lipase 945 H Beta-Hydroxybutyrate Urine Protein Urine Glucose (UA) Urine Ketones Urine Occult Blood Hyaline Casts 03/01/19 10:00 RBC Hgb Hct MPV Gran % 84.2 H Lymph % (Auto) 6.7 L Gran # 9.1 H Lymph # (Auto) 0.7 L ABG Methemoglobin VBG pH VBG pCO2 VBG pO2 VBG HCO3 VBG Total CO2 VBG O2 Saturation VBG Base Excess VBG Lactic Acid Carboxyhemoglobin Total Hemoglobin Carbon Dioxide Anion Gap BUN Glucose Osmolality Uric Acid Calcium Phosphorus Magnesium Alkaline Phosphatase C-Reactive Protein Albumin Triglycerides HDL Cholesterol Amylase Lipase Beta-Hydroxybutyrate Urine Protein Urine Glucose (UA) Urine Ketones Urine Occult Blood Hyaline Casts Meds: Medications Acetaminophen (Tylenol) 650 mg PO Q4-6HP PRN; Protocol PRN Reason: PAIN/FEVER > 101 Last Admin: 03/02/19 13:00 Dose: 650 mg Documented by: Albuterol/Ipratropium (Duoneb) 3 ml NEB Q4HP PRN PRN Reason: Shortness Of Breath Cinacalcet (Sensipar) 60 mg PO [facility] Last Admin: 03/02/19 09:17 Dose: 60 mg Documented by: Dextrose (Dextrose 50%) 0 ml IV UD PRN PRN Reason: Hypoglycemia Diagnostic Test (Pha) (Accu-Chek) 1 each FS ACHS [facility] Last Admin: 03/03/19 05:21 Dose: 1 each Documented by: Docusate Sodium (Colace) 100 mg PO BID [facility] Last Admin: 03/02/19 20:35 Dose: Not Given Documented by: Enoxaparin Sodium (Lovenox) 40 mg SQ DAILY [facility] Last Admin: 03/02/19 10:05 Dose: 40 mg Documented by: Glucose (Insta-Glucose) 15 gm PO PRN PRN PRN Reason: Hypoglycemia Hydralazine HCl (Apresoline) 0 mg IV Q2HP PRN PRN Reason: Hypertension Last Admin: 03/02/19 08:13 Dose: 10 mg Documented by: Hydromorphone HCl (Dilaudid) 0 mg IV Q2HP PRN PRN Reason: Pain Potassium Chloride 40 meq/ (Dextrose) 520 mls @ 130 mls/hr IV UD PRN PRN Reason: Potassium < 3 Magnesium Sulfate (Magnesium Sulfate) 2 gm in 50 mls @ 50 mls/hr IV UD PRN PRN Reason: Magnesium </= 1.6 Dextrose/Sodium Chloride (Dextrose 5%-Ns Iv Solution) 1,000 mls @ 25 mls/hr IV .Q24H [facility] Last Infusion: 03/03/19 05:30 Dose: 75 mls/hr Documented by: Insulin Glargine (Lantus) 25 unit SQ QAM [facility] Last Admin: 03/02/19 13:30 Dose: 25 unit Documented by: Insulin Human Lispro (Humalog) 0 unit SQ [facility]; Protocol Last Admin: 03/02/19 20:30 Dose: Not Given Documented by: Labetalol HCl (Trandate) 0 mg IV Q2HP PRN PRN Reason: Hypertension Last Admin: 03/02/19 04:04 Dose: 10 mg Documented by: Lactulose (Cephulac) 10 gm PO DAILYP PRN PRN Reason: Constipation Metoclopramide HCl (Reglan) 10 mg IV Q6HP PRN PRN Reason: Nausea And Vomiting Ondansetron HCl (Zofran) 4 mg IV Q4HP PRN PRN Reason: Nausea And Vomiting Mycophenolate Sodium [Myfortic] 180 Mg Tablet 1 dose PO BID [facility] Last Admin: 03/02/19 20:32 Dose: 1 dose Documented by: Polyethylene Glycol (Miralax) 17 gm PO DAILYP PRN PRN Reason: Constipation Potassium Chloride (Kdur) 40 meq PO UD PRN PRN Reason: Potssium is 3-3.5 Potassium Chloride (Kdur) 40 meq PO UD PRN PRN Reason: Potassium < 3 [facility] Last Admin: 03/02/19 08:13 Dose: 5 mg Documented by: Senna (Senokot) 2 tab PO HSP PRN PRN Reason: Constipation Sodium Chloride (Saline Flush) 10 ml IV Q8 [facility] Last Admin: 03/03/19 05:21 Dose: 10 ml Documented by: Tacrolimus (Prograf) 0.5 mg PO HS [facility] Last Admin: 03/02/19 20:32 Dose: 0.5 mg Documented by: Tacrolimus (Tacrolimus) 3 mg PO BID [facility] Last Admin: 03/02/19 20:32 Dose: 3 mg Documented by: - ABG Interpretation ABG results: 03/01/19 03/01/19 03/02/19 10:15 19:35 04:10 ABG Methemoglobin 0.3 L 0.3 L 0.3 L VBG pH 7.27 L 7.28 L 7.40 VBG pCO2 39.6 L 40.3 L 32.5 L VBG pO2 82 H 46 H 117 H VBG HCO3 17.9 L 18.3 L 19.5 L VBG Total CO2 19.1 L 19.6 L 20.5 L VBG O2 Saturation 91.6 H 76.4 H 94.0 H VBG Base Excess -8.4 L -7.9 L -4.5 L Medical - PN: A/P - Time Spent With Patient Total time spent is greater than 50% in coordination of care (as documented) at patient's floor/unit and/or counseling patient: - Narrative A/P Narrative: A: *DKA: likely dietary and medication noncompliance -Failed pancreatic transplant in the past -resolved *acute Pancreatitis: -GB u/s unremarkable -tolerating liquid diet *Lactic acidosis: *HTN: on lisinopril at home *CKD/Kidney transplant as complication from DM: -On mycophenolate/tacrolimus/prednisone -follows with Dr. Canchola *Hypomag/phos/carter: P: -off insulin gtt to home lantus (may need to reduce given decreased oral intake and low o/n BG) -Monitor electrolytes and replace prn -advance to full liquid diet, advance as tolerated -pain control -u/s of LUE -IV prn BP meds while NPO then restart home lisinopril but increase -ppx: Lovenox Medical - PN: Qual - Stroke Symptom Onset Unknown: No - VTE Deep Vein Thrombosis/Pulmonary Embolism Present on Admission: No
[2019-03-03] MEDS: INSULIN LISPRO 1 UNIT/0.01 ML UNIT SQ SCH ×4 (07:42→21:19)
[2019-03-03 07:49] LABS: ALT/SGPT 21 U/l (0-40); AST/SGOT 15 U/l (0-37); Albumin/Globulin Ratio 1.1 (1.0-2.3); Alkaline Phosphatase 133 U/L (39-117); Bilirubin,Direct < 0.2 mg/dL (0.0-0.3); Bilirubin,Total 0.4 mg/dL (0.0-1.0); Blood Urea Nitrogen 2 mg/dl (6-20); Calcium 8.8 mg/dl (8.6-10.4); Carbon Dioxide 24 mmol/L (22-30); Chloride 106 mmol/L (96-108); Globulin 2.7 gm/dL (2.2-3.7); Glomerular Filtration Rate 118; Glucose 79 mg/dL (70-105); Lactate Dehydrogenase 129 U/L (94-250); Phosphorous 1.8 mg/dL (2.7-4.5); Triglycerides 288 mg/dl (<150)
[2019-03-03] MEDS ORDERED: POTASSIUM CHLORIDE 20 MEQ TABLET PO ONE ×2 (07:56→08:27)
[2019-03-03] MEDS ORDERED: POTASSIUM CHLORIDE 20 MEQ in DEXTROSE 5% IN WATER 250 ML IV ONE (07:56)
[2019-03-03] MEDS ORDERED: MAGNESIUM SULFATE 2 GM/50 ML BAG IV ONE ×2 (07:58→08:27)
[2019-03-03] MEDS ORDERED: POTASSIUM PHOSPHATE 40 MEQ in DEXTROSE 5% IN WATER 500 ML IV ONE ×2 (08:21→08:27)
[2019-03-03] MEDS ORDERED: ONDANSETRON 4 MG/2 ML VIAL IV PRN (08:27)
[2019-03-03] MEDS ORDERED: hydrALAZINE 20 MG/ML VIAL IV PRN (08:27)
[2019-03-03] MEDS ORDERED: POLYETHYLENE GLYCOL 3350 17 GM PACKET PO PRN (08:27)
[2019-03-03] MEDS ORDERED: DEXTROSE 31 GM ORAL.SUSP PO PRN (08:27)
[2019-03-03] MEDS ORDERED: METOCLOPRAMIDE 10 MG/2 ML VIAL IV PRN (08:27)
[2019-03-03] MEDS ORDERED: POTASSIUM CHLORIDE 40 MEQ in DEXTROSE 5% IN WATER 500 ML IV PRN (08:27)
[2019-03-03] MEDS ORDERED: LABETALOL 5 MG/ML ML IV PRN (08:27)
[2019-03-03] MEDS ORDERED: LACTULOSE 20 GM/30 ML ORAL.SOL PO PRN (08:27)
[2019-03-03] MEDS ORDERED: HYDROmorphone 2 MG/ML VIAL IV PRN (08:27)
[2019-03-03] MEDS ORDERED: SENNOSIDES 1 TABLET PO PRN (08:27)
[2019-03-03] MEDS ORDERED: POTASSIUM CHLORIDE 20 MEQ TABLET PO PRN ×2 (08:27)
[2019-03-03] MEDS ORDERED: ACETAMINOPHEN 325 MG TABLET PO PRN (08:27)
[2019-03-03] MEDS ORDERED: IPRATROPIUM/ALBUTEROL 3 ML AMPUL.NEB NEB PRN (08:27)
[2019-03-03] MEDS ORDERED: MAGNESIUM SULFATE 2 GM/50 ML BAG IV PRN (08:27)
[2019-03-03] MEDS ORDERED: DEXTROSE 50% 50 ML VIAL IV PRN (08:27)
[2019-03-03] MEDS: predniSONE 5 MG TABLET PO SCH (08:51)
[2019-03-03] MEDS: CINACALCET 30 MG TABLET PO SCH (08:51)
[2019-03-03] MEDS: ENOXAPARIN 40 MG/0.4 ML SYRINGE SQ SCH (08:52)
[2019-03-03] MEDS: INSULIN GLARGINE, HUMAN 1 UNIT/0.01 ML SQ SCH (08:52)
[2019-03-03] MEDS: DEXTROSE 5%-NS 1,000 ML IV SCH (08:52)
[2019-03-03] MEDS: DOCUSATE SODIUM 100 MG CAPSULE PO SCH ×2 (08:53→20:18)
[2019-03-03] MEDS: MYCOPHENOLATE SODIUM 180 MG PO SCH ×2 (08:55→21:20)
[2019-03-03] MEDS: TACROLIMUS 1 MG CAPSULE PO SCH ×2 (08:59→21:20)
[2019-03-03] MEDS ORDERED: ENOXAPARIN 40 MG/0.4 ML SYRINGE SQ SCH (09:00)
[2019-03-03] MEDS ORDERED: INSULIN GLARGINE, HUMAN 1 UNIT/0.01 ML SQ SCH (09:00)
[2019-03-03] MEDS ORDERED: FLU VACC QS2019-20(6MOS UP)/PF 60 MCG/0.5 ML SYRINGE IM ONE (10:00)
--- NOTE | 2019-03-03 10:52 | Ultrasound Report ---
CLINICAL INFORMATION: Left brachial artery to cephalic vein fistula. Increasing swelling and pain. This has not been used for four years. History of renal transplant COMPARISON: None. FINDINGS: Brachial artery to cephalic vein fistula is appreciated. 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 Just proximal to the anastomosis, there is a 50% stenosis of the brachial artery due to chronic appearing thrombus. A 3 cm acute thrombus within the mid basilic vein is also appreciated. IMPRESSION: 1. Brachial artery to cephalic vein fistula: 50% chronic stenosis of the brachial artery just proximal to the anastomosis, 10 cm segment of the cephalic outflow vein demonstrates a long 50% chronic stenosis due to partial thrombus. 2. Complete occlusion of a 3 cm segment of the basilic vein due to acute thrombus Interpreted and Authenticated by: Noble Gordon 03/03/19
[2019-03-03] MEDS ORDERED: HEPARIN/D5W 500 ML IV ONE (11:56)
[2019-03-03] MEDS: HEPARIN/D5W 25,000 UNIT in PREMIX 1 BAG IV SCH (12:25)
[2019-03-03 12:37] LABS: Basophils # (Auto) 0 K/mcL (0.0-0.3); Basophils % (Auto) 0.5 % (0.0-2.0); Eosinophils # (Auto) 0.2 K/mcL (0.0-0.7); Eosinophils % (Auto) 4.3 % (0.0-7.0); Granulocytes % (Auto) 68.8 % (38.0-78.0); Hematocrit 35.2 % (41.0-55.0); Hemoglobin 11.9 g/dL (13.5-16.5); Lymphocytes # (Auto) 0.9 K/mcL (1.5-4.8); Lymphocytes % (Auto) 16.8 % (15.5-49.0); Mean Cell Volume 92.5 fL (80.0-100.0); Mean Corpuscular HGB Conc 33.9 g/dL (31.0-36.0); Mean Platelet Volume 7.4 fL (7.4-10.4); Monocytes # (Auto) 0.5 K/mcL (0.1-0.9); Monocytes % (Auto) 9.6 % (1.0-12.0); Platelet Count 119 K/mcL (140-440); RBC 3.81 M/mcL (4.50-5.90); Red Cell Distribution Width 13.3 % (11.5-14.5); WBC 5.3 K/mcL (4.5-11.0)
[2019-03-03 12:47] LABS: Prothrombin Time 13.7 sec (11.9-14.5)
[2019-03-03] MEDS ORDERED: TACROLIMUS 0.5 MG CAPSULE PO SCH (21:00)
[2019-03-03] MEDS ORDERED: HEPARIN 5,000 UNIT/ML VIAL ONE (21:10)
[2019-03-04] MEDS: DEXTROSE 5%-NS 1,000 ML IV SCH ×2 (01:56→08:33)
[2019-03-04] MEDS: 0.9 % SODIUM CHLORIDE 10 ML SYRINGE IV SCH ×2 (05:27→14:37)
[2019-03-04 06:19] LABS: ALT/SGPT 20 U/l (0-40); AST/SGOT 26 U/l (0-37); Albumin 3.1 gm/dL (3.2-5.2); Albumin/Globulin Ratio 1.3 (1.0-2.3); Alkaline Phosphatase 133 U/L (39-117); Bilirubin,Direct < 0.2 mg/dL (0.0-0.3); Bilirubin,Total 0.3 mg/dL (0.0-1.0); Blood Urea Nitrogen 2 mg/dl (6-20); Calcium 8.1 mg/dl (8.6-10.4); Carbon Dioxide 26 mmol/L (22-30); Chloride 104 mmol/L (96-108); Globulin 2.4 gm/dL (2.2-3.7); Glomerular Filtration Rate 133; Glucose 97 mg/dL (70-105); Lactate Dehydrogenase 144 U/L (94-250); Phosphorous 2.1 mg/dL (2.7-4.5); Triglycerides 184 mg/dl (<150); Uric Acid 5.7 mg/dL (2.5-8.0)
[2019-03-04] MEDS ORDERED: MAGNESIUM SULFATE 2 GM/50 ML BAG IV ONE (07:48)
--- NOTE | 2019-03-04 07:52 | Internal Med Progress Note ---
Medical - PN: Subj Patient information: Note initiated : 03/04/19 at 7:47 am Service Date, if different from initiated Date: [] Patient: Robert Pacheco a 34 y/o M admitted on 03/01/19 for Vomiting, abd pain. Chief Complaint: [] Interval history: Mr. Pacheco is a 33 year old M Who presents with nausea vomiting abdominal pain. He states he woke up Sunday morning feeling okay but then throughout the day became more tired and noticed his sugars started increasing. Last night they were between 300 and 400. Started having nausea vomiting yesterday evening as well as abdominal achy pain. Denies recent alcohol use states last use couple weeks ago. Denies drug use. Does not always adhere to diabetic diet. Had caffeinated coffee this morning and occasionally has sugary foods. He also missed several doses of his insulin. Denies diarrhea In the ED he was found to be in DKA as well as pancreatitis. 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 There was no concern for the transplanted pancreas as it has been failing and this is likely stemming from the [place] pancreas. No concern for transferring this patient. His renal function appears stable. was able to locate ultrasound results that had been done on this patient as well as location of the transplant which was in the right lower quadrant of the abdomen. Patient is feeling better after insulin and IV fluids in the ER. CTA abdomen done which showed severe pancreatitis. Patient given 3 L of IV fluid in the ED. 03/02 Feeling much better today. No nausea vomiting this morning. Had a good bowel movement last night which helped with abdominal pain as well. Abdominal pain minimal this morning. Feels hungry. Despite lactate elevated this morning. Lactated Ringer bolus and follow-up lactate later this morning. May start clears this afternoon. Still has anion gap. Insulin drip running Gallbladder ultrasound pending 03/03 Well. Continues to feel better no nausea vomiting or abdominal pain. Tolerating liquid diet well. Replacing low electrolytes. Patient is concerned about his fistula says it appears to have a little bit of bruising and his arm is little more swollen. Nurse contacted supply chain tech review and then will discuss with Dr. Canchola for imaging. 03/04 Are still swollen but he feels it is improved a little bit from yesterday. No n ew complaints and feeling well. Tolerating diet well Review of Systems: denies headache/fever/chills/nausea/vomiting/chest pain/cough/dyspnea/diarrhea. Otherwise see above. - Constitutional Vitals: Vital Signs Temp Pulse Resp BP Pulse Ox 98.2 F 74 12 153/43 96 03/04/19 03:44 03/04/19 03:44 03/04/19 03:44 03/04/19 03:44 03/04/19 03:44 Period Temp Pulse Resp BP Sys/Gonzalez Pulse Ox Last 24 Hr 97.4 F-98.3 F 74-88 05-15 133-153/43-106 96-100 Intake and Output 03/03/19 03/04/19 03/04/19 21:59 05:59 13:59 Intake Total 1952.0909 120 209 Output Total 1725 900 Balance 227.0909 -780 209 Weight 57.697 kg Intake & Output: Intake & Output 03/03/19 03/04/19 03/04/19 21:59 05:59 13:59 Intake Total 1952.0909 120 209 Output Total 1725 900 Balance 227.0909 -780 209 Weight 57.697 kg Intake: IV 1562.0909 209 Dextrose 5%-Ns IV Solution 1, 863 000 ml @ 25 mls/hr IV .Q24H [facility] Rx#:[id number] Heparin/D5w 25,000 Unit In 178 209 Premix 1 Bag @ 18 UNIT/KG/HR 20 .526 mls/hr IV .Q24H [facility] Rx#: [id number] Potassium Phosphate 40 Meq In 509.0909 Dextrose 5% in Water 500 ml @ 127.273 mls/hr IV ONCE ONE Rx#: [id number] Oral 390 120 Output: Void Amount 1725 900 Other: Meal Dinner Percent of Meal Consumed 100% Feeding Ability Independent Nourishment/Supplement name Apple Juice Exam: General: Alert, Awake, No acute Distress Eyes/N/T: EOMI, Head/Neck: neck supple, CV: RRR, 2/6 SM Pulm: Clear b/l, no wheezing/rhonchi/rales Abd: soft, nontender, +BS x4 Ext: no clubbing/cyanosis/edema to LE's. LUE swelling with some improvement Neuro: Alert, no focal deficits, moves all extremities, Skin: warm/dry Medical - PN: Obj Da - Labs CBC & Chem 7: 03/03/19 11:42 03/04/19 04:50 Labs: Abnormal Lab Results 03/04/19 03/04/19 03/03/19 04:50 04:50 20:00 RBC Hgb Hct Plt Count MPV Gran % Lymph % (Auto) Gran # Lymph # (Auto) APTT 98 H 63 H ABG Methemoglobin VBG pH VBG pCO2 VBG pO2 VBG HCO3 VBG Total CO2 VBG O2 Saturation VBG Base Excess VBG Lactic Acid Carboxyhemoglobin Total Hemoglobin Potassium Carbon Dioxide Anion Gap BUN 2 L Creatinine 0.6 L Glucose Osmolality Uric Acid Calcium 8.1 L Phosphorus 2.1 L Magnesium 1.1 L Alkaline Phosphatase 133 H C-Reactive Protein Total Protein 5.5 L Albumin 3.1 L Triglycerides 184 H HDL Cholesterol Amylase Lipase Beta-Hydroxybutyrate Urine Protein Urine Glucose (UA) Urine Ketones Urine Occult Blood Hyaline Casts 03/03/19 03/03/19 03/03/19 11:42 04:20 04:00 RBC 3.81 L Hgb 11.9 L Hct 35.2 L Plt Count 119 L MPV Gran % Lymph % (Auto) Gran # Lymph # (Auto) 0.9 L APTT ABG Methemoglobin VBG pH VBG pCO2 VBG pO2 VBG HCO3 VBG Total CO2 VBG O2 Saturation VBG Base Excess VBG Lactic Acid Carboxyhemoglobin Total Hemoglobin Potassium 3.0 L Carbon Dioxide Anion Gap BUN 2 L Creatinine Glucose Osmolality Uric Acid Calcium Phosphorus 1.8 L Magnesium 1.3 L Alkaline Phosphatase 133 H C-Reactive Protein Total Protein 5.7 L Albumin 3.0 L Triglycerides 288 H HDL Cholesterol Amylase Lipase 1023 H Beta-Hydroxybutyrate Urine Protein Urine Glucose (UA) Urine Ketones Urine Occult Blood Hyaline Casts 03/02/19 03/02/19 03/02/19 11:30 11:30 11:30 RBC Hgb Hct Plt Count MPV Gran % Lymph % (Auto) Gran # Lymph # (Auto) APTT ABG Methemoglobin VBG pH VBG pCO2 VBG pO2 VBG HCO3 VBG Total CO2 VBG O2 Saturation VBG Base Excess VBG Lactic Acid 3.9 H Carboxyhemoglobin Total Hemoglobin Potassium Carbon Dioxide Anion Gap BUN 3 L Creatinine Glucose 207 H Osmolality Uric Acid Calcium Phosphorus Magnesium Alkaline Phosphatase C-Reactive Protein Total Protein Albumin Triglycerides 367 H HDL Cholesterol 24 L Amylase Lipase Beta-Hydroxybutyrate 0.33 H Urine Protein Urine Glucose (UA) Urine Ketones Urine Occult Blood Hyaline Casts 03/02/19 03/02/19 03/02/19 04:10 04:10 04:10 RBC Hgb Hct Plt Count MPV Gran % Lymph % (Auto) Gran # Lymph # (Auto) APTT ABG Methemoglobin 0.3 L VBG pH VBG pCO2 32.5 L VBG pO2 117 H VBG HCO3 19.5 L VBG Total CO2 20.5 L VBG O2 Saturation 94.0 H VBG Base Excess -4.5 L VBG Lactic Acid 4.6 H* Carboxyhemoglobin 3.8 H Total Hemoglobin 12.5 L Potassium Carbon Dioxide Anion Gap BUN Creatinine Glucose Osmolality Uric Acid Calcium Phosphorus Magnesium Alkaline Phosphatase C-Reactive Protein Total Protein Albumin Triglycerides HDL Cholesterol Amylase Lipase 961 H Beta-Hydroxybutyrate Urine Protein Urine Glucose (UA) Urine Ketones Urine Occult Blood Hyaline Casts 03/02/19 03/02/19 03/01/19 04:10 04:10 19:35 RBC 4.10 L Hgb 12.9 L Hct 38.3 L Plt Count MPV 7.1 L Gran % Lymph % (Auto) 11.7 L Gran # Lymph # (Auto) 0.9 L APTT ABG Methemoglobin VBG pH VBG pCO2 VBG pO2 VBG HCO3 VBG Total CO2 VBG O2 Saturation VBG Base Excess VBG Lactic Acid Carboxyhemoglobin Total Hemoglobin Potassium Carbon Dioxide 18 L Anion Gap 18.0 H BUN 5 L Creatinine Glucose 229 H Osmolality Uric Acid 8.2 H Calcium Phosphorus 1.8 L Magnesium Alkaline Phosphatase 137 H C-Reactive Protein Total Protein Albumin 3.0 L Triglycerides 378 H HDL Cholesterol Amylase Lipase Beta-Hydroxybutyrate 4.21 H Urine Protein Urine Glucose (UA) Urine Ketones Urine Occult Blood Hyaline Casts 03/01/19 03/01/19 03/01/19 19:35 18:54 17:24 RBC Hgb Hct Plt Count MPV Gran % Lymph % (Auto) Gran # Lymph # (Auto) APTT ABG Methemoglobin 0.3 L VBG pH 7.28 L VBG pCO2 40.3 L VBG pO2 46 H VBG HCO3 18.3 L VBG Total CO2 19.6 L VBG O2 Saturation 76.4 H VBG Base Excess -7.9 L VBG Lactic Acid Carboxyhemoglobin 4.5 H Total Hemoglobin 13.0 L Potassium Carbon Dioxide Anion Gap BUN Creatinine Glucose Osmolality Uric Acid Calcium Phosphorus 1.5 L Magnesium 1.5 L Alkaline Phosphatase C-Reactive Protein Total Protein Albumin Triglycerides HDL Cholesterol Amylase Lipase 1074 H Beta-Hydroxybutyrate Urine Protein Urine Glucose (UA) Urine Ketones Urine Occult Blood Hyaline Casts 03/01/19 03/01/19 03/01/19 17:24 11:15 10:15 RBC Hgb Hct Plt Count MPV Gran % Lymph % (Auto) Gran # Lymph # (Auto) APTT ABG Methemoglobin 0.3 L VBG pH 7.27 L VBG pCO2 39.6 L VBG pO2 82 H VBG HCO3 17.9 L VBG Total CO2 19.1 L VBG O2 Saturation 91.6 H VBG Base Excess -8.4 L VBG Lactic Acid Carboxyhemoglobin 3.6 H Total Hemoglobin Potassium Carbon Dioxide Anion Gap BUN Creatinine Glucose Osmolality Uric Acid Calcium Phosphorus Magnesium Alkaline Phosphatase C-Reactive Protein Total Protein Albumin Triglycerides 353 H HDL Cholesterol Amylase Lipase Beta-Hydroxybutyrate 3.13 H Urine Protein 100 A Urine Glucose (UA) >=500 A Urine Ketones 80 A Urine Occult Blood 0.03 A Hyaline Casts 14 H 03/01/19 03/01/19 03/01/19 10:00 10:00 10:00 RBC Hgb Hct Plt Count MPV Gran % Lymph % (Auto) Gran # Lymph # (Auto) APTT ABG Methemoglobin VBG pH VBG pCO2 VBG pO2 VBG HCO3 VBG Total CO2 VBG O2 Saturation VBG Base Excess VBG Lactic Acid 2.1 H Carboxyhemoglobin Total Hemoglobin Potassium Carbon Dioxide 17 L Anion Gap 21.0 H BUN Creatinine Glucose 202 H Osmolality 306 H Uric Acid Calcium 10.6 H Phosphorus Magnesium Alkaline Phosphatase 167 H C-Reactive Protein 1.4 H Total Protein Albumin Triglycerides HDL Cholesterol Amylase 307 H Lipase 945 H Beta-Hydroxybutyrate Urine Protein Urine Glucose (UA) Urine Ketones Urine Occult Blood Hyaline Casts 03/01/19 10:00 RBC Hgb Hct Plt Count MPV Gran % 84.2 H Lymph % (Auto) 6.7 L Gran # 9.1 H Lymph # (Auto) 0.7 L APTT ABG Methemoglobin VBG pH VBG pCO2 VBG pO2 VBG HCO3 VBG Total CO2 VBG O2 Saturation VBG Base Excess VBG Lactic Acid Carboxyhemoglobin Total Hemoglobin Potassium Carbon Dioxide Anion Gap BUN Creatinine Glucose Osmolality Uric Acid Calcium Phosphorus Magnesium Alkaline Phosphatase C-Reactive Protein Total Protein Albumin Triglycerides HDL Cholesterol Amylase Lipase Beta-Hydroxybutyrate Urine Protein Urine Glucose (UA) Urine Ketones Urine Occult Blood Hyaline Casts Meds: Medications Acetaminophen (Tylenol) 650 mg PO Q4-6HP PRN; Protocol PRN Reason: PAIN/FEVER > 101 Albuterol/Ipratropium (Duoneb) 3 ml NEB Q4HP PRN PRN Reason: Shortness Of Breath [facility] Dextrose (Dextrose 50%) 0 ml IV UD PRN PRN Reason: Hypoglycemia Diagnostic Test (Pha) (Accu-Chek) 1 each FS ACHS [facility] Last Admin: 03/04/19 04:50 Dose: 1 each Documented by: Docusate Sodium (Colace) 100 mg PO BID [facility] Last Admin: 03/03/19 20:18 Dose: Not Given Documented by: Glucose (Insta-Glucose) 15 gm PO PRN PRN PRN Reason: Hypoglycemia Hydralazine HCl (Apresoline) 0 mg IV Q2HP PRN PRN Reason: Hypertension Hydromorphone HCl (Dilaudid) 0 mg IV Q2HP PRN PRN Reason: Pain Dextrose/Sodium Chloride (Dextrose 5%-Ns Iv Solution) 1,000 mls @ 25 mls/hr IV .Q24H [facility] Last Admin: 03/04/19 01:56 Dose: 25 mls/hr Documented by: Potassium Chloride 40 meq/ (Dextrose) 520 mls @ 130 mls/hr IV UD PRN PRN Reason: Potassium < 3 Magnesium Sulfate (Magnesium Sulfate) 2 gm in 50 mls @ 50 mls/hr IV UD PRN PRN Reason: Magnesium </= 1.6 Heparin Sodium/Dextrose 25,000 (unit/ Premix) 500 mls @ 20.526 mls/hr IV .Q24H [facility]; Protocol Last Titration: 03/04/19 06:15 Dose: 18 unit/kg/hr, 20.526 mls/hr Documented by: Insulin [facility]ine (Lantus) [facility] [place] Last Admin: 03/03/19 08:52 Dose: 15 unit Documented by: Insulin Human Lispro (Humalog) 0 unit SQ [facility]; Protocol Last Admin: 03/03/19 21:19 Dose: 2 unit Documented by: Labetalol HCl (Trandate) 0 mg IV Q2HP PRN PRN Reason: Hypertension Lactulose (Cephulac) 10 gm PO DAILYP PRN PRN Reason: Constipation Metoclopramide HCl (Reglan) 10 mg IV Q6HP PRN PRN Reason: Nausea And Vomiting Ondansetron HCl (Zofran) 4 mg IV Q4HP PRN PRN Reason: Nausea And Vomiting Mycophenolate Sodium ([Myfortic] 180 Mg)) 1 dose PO BID [facility] Last Admin: 03/03/19 21:20 Dose: 1 dose Documented by: Polyethylene Glycol (Miralax) 17 gm PO DAILYP PRN PRN Reason: Constipation Potassium Chloride (Kdur) 40 meq PO UD PRN PRN Reason: Potssium is 3-3.5 Potassium Chloride (Kdur) 40 meq PO UD PRN PRN Reason: Potassium < 3 Prednisone (Prednisone) 5 mg PO [facility] Senna (Senokot) 2 tab PO HSP PRN PRN Reason: Constipation Sodium Chloride (Saline Flush) 10 ml IV Q8 [facility] Last Admin: 03/04/19 05:27 Dose: Not Given Documented by: Tacrolimus (Prograf) 0.5 mg PO HS [facility] Last Admin: 03/03/19 21:21 Dose: 0.5 mg Documented by: Tacrolimus (Tacrolimus) 3 mg PO BID [facility] Last Admin: 03/03/19 21:20 Dose: 3 mg Documented by: - ABG Interpretation ABG results: 03/01/19 03/01/19 03/02/19 10:15 19:35 04:10 ABG Methemoglobin 0.3 L 0.3 L 0.3 L VBG pH 7.27 L 7.28 L 7.40 VBG pCO2 39.6 L 40.3 L 32.5 L VBG pO2 82 H 46 H 117 H VBG HCO3 17.9 L 18.3 L 19.5 L VBG Total CO2 19.1 L 19.6 L 20.5 L VBG O2 Saturation 91.6 H 76.4 H 94.0 H VBG Base Excess -8.4 L -7.9 L -4.5 L Medical - PN: A/P - Time Spent With Patient Total time spent is greater than 50% in coordination of care (as documented) at patient's floor/unit and/or counseling patient: - Narrative A/P Narrative: A: *DKA: likely dietary and medication noncompliance -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 3cm basilic vein acute thrombus *HTN: on lisinopril at home *CKD/Kidney transplant as complication from DM: -On mycophenolate/tacrolimus/prednisone -follows with Dr. Canchola *Hypomag/phos/carter: improving P: -heparin gtt, then likely transition to eliquis later today and then likely d/c -off insulin gtt to home lantus (reduced dose given decreased oral intake and low o/n BG) -Monitor electrolytes and replace prn -full liquid diet, advance as tolerated -restart home ACEI -ppx: Lovenox Medical - PN: Qual - Stroke Symptom Onset Unknown: No - VTE Deep Vein Thrombosis/Pulmonary Embolism Present on Admission: No
[2019-03-04] MEDS ORDERED: CINACALCET 30 MG TABLET PO SCH (08:00)
[2019-03-04] MEDS ORDERED: predniSONE 5 MG TABLET PO SCH (08:00)
[2019-03-04] MEDS: INSULIN LISPRO 1 UNIT/0.01 ML UNIT SQ SCH ×3 (08:24→17:04)
--- NOTE | 2019-03-04 08:27 | Discharge Summary ---
Medical - DS: Prov Patient information: Note initiated : 03/04/19 at 8:25 am Service Date, if different from initiated Date: [] Patient: Robert Pacheco 34 y/o M admitted on 03/01/19 for Vomiting, abd pain. Chief Complaint: [] Date of admission: 03/01/19 18:38 Discharge date: 03/04/19 Primary care physician: Joe Harmon Consults: 03/01/19 Consult to Physician [CONS] Stat Comment: Consulting Provider: Wolfgang Vance Reason For Exam: Physician to Consult Medical - DS: Meds - Discharge Medications Prescriptions: Apixaban [Eliquis] 10 mg PO BID #80 tab Active and Home Medications: Home Medications Cinacalcet HCl [Sensipar] 60 mg PO DAILY 12/15/17 [History Confirmed 03/01/19 Last Taken 03/01/19 08:30] Lisinopril [Zestril] 10 mg PO DAILY 12/15/17 [History Confirmed 03/01/19 Last Taken 03/01/19 08:30] Mycophenolate Sodium [Myfortic] 180 mg PO BID 12/15/17 [History Confirmed 03/02/19 Last Taken 03/01/19 08:30] predniSONE [Prednisone] 5 mg PO DAILY 12/15/17 [History Confirmed 03/01/19 Last Taken 03/01/19 08:30] Insulin Aspart [Novolog] 1 unit SQ ACHS 03/01/19 [History Confirmed 03/01/19 Last Taken 03/01/19 08:45] Insulin Glargine, Human [Lantus] 25 unit SQ QAM 03/01/19 [History Confirmed 03/01/19 Last Taken 02/28/19 09:00] Tacrolimus [Prograf] 0.5 mg PO HS 03/01/19 [History Confirmed 03/02/19 Last Taken 03/01/19 08:30] Tacrolimus [Prograf] 3 mg PO BID 03/01/19 [History Confirmed 03/02/19 Last Taken 03/01/19 08:30] Magnesium Oxide [Magnesium] 400 mg PO QAM 03/02/19 [History Confirmed 03/02/19 Last Taken 03/01/19 08:30] Vitamin D3 1,000 unit PO DAILY 03/02/19 [History Confirmed 03/02/19 Last Taken 03/01/19 08:30] Medical - DS: Hosp Hospital Course: Mr. Pacheco is a 33 year old M Who presents with nausea vomiting abdominal pain. He states he woke up Sunday morning feeling okay but then throughout the day became more tired and noticed his sugars started increasing. Last night they were between 300 and 400. Started having nausea vomiting yesterday evening as well as abdominal achy pain. Denies recent alcohol use states last use couple weeks ago. Denies drug use. Does not always adhere to diabetic diet. Had caffeinated coffee this morning and occasionally has sugary foods. He also missed several doses of his insulin. Denies diarrhea In the ED he was found to be in DKA as well as pancreatitis. 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 There was no concern for the transplanted pancreas as it has been failing and this is likely stemming from the [place] pancreas. No concern for transferring this patient. His renal function appears stable. was able to locate ultrasound results that had been done on this patient as well as location of the transplant which was in the right lower quadrant of the abdomen. Patient is feeling better after insulin and IV fluids in the ER. CTA abdomen done which showed severe pancreatitis. Patient given 3 L of IV fluid in the ED. 03/02 Feeling much better today. No nausea vomiting this morning. Had a good bowel movement last night which helped with abdominal pain as well. Abdominal pain minimal this morning. Feels hungry. Despite lactate elevated this morning. Lactated Ringer bolus and follow-up lactate later this morning. May start clears this afternoon. Still has anion gap. Insulin drip running Gallbladder ultrasound pending 03/03 Well. Continues to feel better no nausea vomiting or abdominal pain. Tolerating liquid diet well. Replacing low electrolytes. Patient is concerned about his fistula says it appears to have a little bit of bruising and his arm is little more swollen. Nurse contacted pm technician review and then will discuss with Dr. Canchola for imaging. 03/04 Arm still swollen but he states it does feels improved some from yesterday. No new complaints and feeling well. Tolerating diet well Discharge diagnosis: DKA pancreatitis left upper extremity DVT Secondary discharge diagnosis: Hypertension chronic kidney disease kidney transplant electrolyte abnormalities - Time Spent with Patient Total time spent providing and/or coordinating discharge services: Medical - DS: Exam - Constitutional Vitals: Vital Signs Temp Pulse Resp BP Pulse Ox 03/04/19 08:13 97.9 F 76 18 132/50 99 03/04/19 03:44 98.2 F 74 12 153/43 96 03/04/19 03:43 76 96 03/03/19 23:20 144/74 98 03/03/19 23:00 98.0 F 82 16 144/74 98 03/03/19 19:26 98.2 F 16 143/97 100 03/03/19 17:01 98.0 F 88 14 149/84 98 03/03/19 13:03 142/63 98 03/03/19 10:15 98.3 F 83 14 142/63 100 03/03/19 09:01 16 133/101 Intake and Output 03/03/19 03/04/19 03/04/19 21:59 05:59 13:59 Intake Total 1952.0909 120 209 Output Total 6625 268 5576 Balance 227.0927 -614 -529 Intake: IV 1562.0909 209 Dextrose 5%-Ns IV Solution 1, 863 000 ml @ 25 mls/hr IV .Q24H [facility] Rx#:[id number] Heparin/D5w 25,000 Unit In 178 209 Premix 1 Bag @ 18 UNIT/KG/HR 20 .526 mls/hr IV .Q24H [facility] Rx#: [id number] Potassium Phosphate 40 Meq In 509.0909 Dextrose 5% in Water 500 ml @ 127.273 mls/hr IV ONCE ONE Rx#: [id number] Oral 390 120 Output: Void Amount 3118 034 5794 Other: Meal Dinner Percent of Meal Consumed 100% Feeding Ability Independent Nourishment/Supplement name Apple Juice Weight 57.697 kg Medical - DS: Data Labs on day of discharge: Labs from last 24 hours 03/04/19 03/04/19 03/03/19 04:50 04:50 20:00 WBC RBC Hgb Hct MCV MCH MCHC RDW Plt Count MPV Gran % Lymph % (Auto) [place] % (Auto) Eos % (Auto) Baso % (Auto) Gran # Lymph # (Auto) [place] # (Auto) Eos # (Auto) Baso # (Auto) PT INR APTT 98 H 63 H Sodium 142 Potassium 3.5 Chloride 104 Carbon Dioxide 26 Anion Gap 12.0 BUN 2 L Creatinine 0.6 L GFR Calculation 133 Glucose 97 Uric Acid 5.7 Calcium 8.1 L Phosphorus 2.1 L Magnesium 1.1 L Total Bilirubin 0.3 Direct Bilirubin < 0.2 GGT 37 AST 26 ALT 20 Alkaline Phosphatase 133 H Lactate Dehydrogenase 144 Total Protein 5.5 L Albumin 3.1 L Globulin 2.4 Albumin/Globulin Ratio 1.3 Triglycerides 184 H 03/03/19 03/03/19 11:42 11:42 WBC 5.3 RBC 3.81 L Hgb 11.9 L Hct 35.2 L MCV 92.5 MCH 31.3 MCHC 33.9 RDW 13.3 Plt Count 119 L MPV 7.4 Gran % 68.8 Lymph % (Auto) 16.8 [place] % (Auto) 9.6 Eos % (Auto) 4.3 Baso % (Auto) 0.5 Gran # 3.7 Lymph # (Auto) 0.9 L [place] # (Auto) 0.5 Eos # (Auto) 0.2 Baso # (Auto) 0 PT 13.7 INR 1.0 APTT 37 Sodium Potassium Chloride Carbon Dioxide Anion Gap BUN Creatinine GFR Calculation Glucose Uric Acid Calcium Phosphorus Magnesium Total Bilirubin Direct Bilirubin GGT AST ALT Alkaline Phosphatase Lactate Dehydrogenase Total Protein Albumin Globulin Albumin/Globulin Ratio Triglycerides Medical - DS: A/P - Patient/Caregiver Discharge Instructions Activity: increase activity as tolerated Diet: Low Fat, Consistent Carbohydrate Prescriptions: Apixaban [Eliquis] 10 mg PO BID #80 tab - Follow up Plan Follow up with: Joe Harmon DO [Primary Care Provider] - Abner Canchola MD [Physician] - Disposition: Home, Self-Care Care Plan Goals: This discharge packet is provided to you to help keep you informed about your care. We want to ensure you get everything you need when you go home. You will also be receiving a call from us in a few days to follow up with you and see how you are doing since your discharge. This gives us a chance to listen to any concerns you maybe experiencing since you were discharged or any additional needs you may have, as well as providing us feedback on your care experience. We strive to always provide excellent care and thank you for your feedback and for choosing [facility]. Prognosis: Fair Rehab Potential: Fair Overall status at discharge: patient is progressing back to baseline Medical - DS: Qual - VTE Deep Vein Thrombosis/Pulmonary Embolism Present on Admission: No
[2019-03-04] MEDS: DOCUSATE SODIUM 100 MG CAPSULE PO SCH (08:33)
[2019-03-04] MEDS: INSULIN GLARGINE, HUMAN 1 UNIT/0.01 ML SQ SCH (08:33)
[2019-03-04] MEDS: MYCOPHENOLATE SODIUM 180 MG PO SCH (08:34)
[2019-03-04] MEDS: TACROLIMUS 1 MG CAPSULE PO SCH (08:34)
[2019-03-04] MEDS: NEUTRA PHOS 1 PACKET PO SCH ×2 (08:34→15:36)
[2019-03-04] MEDS ORDERED: LISINOPRIL 10 MG TABLET PO SCH (09:00)
[2019-03-04] MEDS ORDERED: HEPARIN/D5W 500 ML IV ONE (10:00)
[2019-03-04] MEDS: HEPARIN/D5W 25,000 UNIT in PREMIX 1 BAG IV SCH (10:37)
[2019-03-04] MEDS ORDERED: HEPARIN 5,000 UNIT/ML VIAL ONE (15:25)
[2019-03-04] MEDS ORDERED: APIXABAN 5 MG TABLET PO ONE (19:00)
== END 2019-03-04 19:20 | disposition home or self-care (01) | DRG 637 ==
LOC: ED 09:10 → ICU 18:38 → MEDSUR 03-04 10:56
PROVIDERS: ADMIT Internal Medicine; ATTEND Internal Medicine